=== PATIENT | female | born 1975 | race Caucasian/White ===

== ENCOUNTER 2025-05-21 12:14 | Emergency (ER) | payer BC, SELFPAY ==
--- NOTE | ~2025-05-21 | XR_ITS ---
XR ankle RT min 3V 05/21/2025 12:33 INDICATION: Right ankle pain PROCEDURE: 4 views right ankle COMPARISON: No prior studies for comparison. FINDINGS: Fracture, dislocation or subluxation is not identified. The soft tissues appear within norm al limits. No foreign bodies are identified. IMPRESSION: 1: NO ACUTE BONE OR JOINT ABNORMALITY IDENTIFIED. Reviewed, dictated and finalized at location B.
--- OUTSIDE RECORDS SUMMARY | 2025-05-21 12:20 | XMS_ITS | Encounter Summary ---
Author Organization [facility] Address [address] [place] [address] [place] [address] Care Team Providers Care Button Attaching Machine Operator Name Role Phone Unavailable Primary Care Provider Unavailabl e Encounter Details Date Type Department Care Team (Late st Contact Info) Description 09/27/2021 Lab Requisition [facility] [address] [place] [address] Lauren Mccann MD Social History Tobacco Use Types Packs/Day Years Used Date Smoking Tobacco: Never Assessed Comments Unknown Sex and Gender Information Value Date Recorded Sex Assigned at Not on file Legal Sex Female 1:08 PM CDT Gender Identity Not on file Sexual Orientation Not on file documented as of this encounter Plan of Treatment Not on file documented as of this encounter Procedures Procedure Name Priority Date/Time Associated Diagnosis Comments HCG BETA BLOOD QUANTITATIVE STAT 09/27/2021 12:10 PM TRIPE SCRAPER documented in this encounter Results * HCG BETA BLOOD QUANTITATIVE (09/27/2021 12:10 PM TRIPE SCRAPER) hCG Quantitative <1.20 mIU/mL 09/27/20 4:10 PM TRIPE SCRAPER [facility] Blood BLOOD SPECIMEN / Unknown Venipuncture / Unknown 09/27/2021 12:10 PM TRIPE SCRAPER 09/27/2021 3:14 PM TRIPE SCRAPER Narrative [facility] - 09/27/2021 4:10 PM TRIPE SCRAPER hCG Reference Range, mIU/mL: Males 0-2.0 Non Females 0-6.0 Perimenopausal Females ages 41-55* 0-7.7 Postmenopausal Females age >55* 0-14 Females, Weeks after Last Menstrual Period 0.2-1 week 5-50 1 - 2 weeks 50-500 2 - 3 weeks 100-5000 3 - 4 weeks 500-10,000 4 - 5 weeks 1000-50,000 5 - 6 weeks 10,000-100,000 6 - 8 weeks 15,000-200,000 2 - 3 months 10,000-100,000 Trophoblastic Disease >100,000 *In higher than expected hCG in females > age 40, a serum FSH >20 IU/L makes unlikely. Lauren Mccann MD LAB - CHEMISTRY ORDERABLES Final Result Performing Organization Address City/State/[facility] Co de Phone Number [facility] [address] [place] [address] documented in this encounter Visit Diagnoses Not on filedocumented in this encounter
--- OUTSIDE RECORDS SUMMARY | 2025-05-21 12:20 | XMS_ITS | Encounter Summary ---
Author Organization [facility] Address [facility] [place] [address] Care Team Providers Care Olive Pitter Name Role Phone Ryann Gillis [facility] Primary Care Provider Kalie Castro CARBON GRINDER Unavailable [phone] Donnie Alfaro MD Primary Care Provider [phone] Reason for Referral * Surgical (Routine) - Closed Specialty Diagnoses / Procedures Referred By Floridalma garcia Referred To Contact NEUROLOGICAL SURGERY Diagnoses Congenital fusion of cervical spine Cervical radiculopathy Ryann Gillis [facility] Morgan Hardin MD [address] [place] [phone] Phone: tel: fax: Referral ID Status Reason Start Date Expiration Date V isits Requested Visits Authorized [id number] Closed Specialty Services 11/19/2020 12/20/2021 99 99 Scheduling Instructions Send w referral Findings: There is straightening of the cervical lordosis. There are no vertebral body compression fractures. There is abnormal morphology of the C3 and C4 vertebra with partial ankylosis of the vertebra. This is possibly due to congenital deformity or posttraumatic deformity. The bone marrow signal intensity is grossly normal without infiltrative disorder. The prevertebral soft tissues appear normal. The craniocervical junction is normal without cerebellar tonsillar ectopia. There is no gross syrinx. Partially visualized is a 1.3 cm T2 hyperintense left thyroid nodule. Would consider ultrasound correlation in the near future. C2-3: Mild facet arthropathy. No posterior disc pathology. No central spinal canal stenosis nor right neural foraminal stenosis. Mild to moderate left neural foraminal stenosis due to uncovertebral arthropathy and facet arthropathy. C3-4: Mild facet arthropathy. No posterior disc pathology. No central spinal canal stenosis nor neural foraminal stenosis. C4-5: Moderate facet arthropathy. Posterior disc bulge with left uncovertebral arthropathy. There is moderate central spinal canal stenosis with impingement upon the spinal cord. The right neural foramen is patent. There is moderate left neural foraminal stenosis. C5-6: Moderate facet arthropathy. Broad-based disc bulge with a more left posterior lateral component. There is moderate central spinal canal stenosis. The right neural foramen is patent. There is moderate to severe left neural foraminal stenosis due to facet arthropathy and uncovertebral arthropathy. C6-7: Mild to moderate facet arthropathy. Broad-based posterior disc bulge with impingement upon the ventral cord. There is mild to moderate central spinal canal stenosis. The right neural foramen is patent. There is mild to moderate left neural foraminal stenosis. C7-T1: Mild to moderate facet arthropathy. Mild left posterior lateral bulge. No gross central spinal canal stenosis nor right neural foraminal stenosis. Mild left neural foraminal stenosis. Impression: 1. 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 This may be congenital in nature or posttraumatic in nature. 2. Multilevel facet arthropathy, uncovertebral arthropathy and degenerative disc disease with multilevel stenoses. Please see the body of the report for details. 3. Indeterminate left thyroid nodule only partially visualized. Would consider ultrasound correlation in the near future. GER POKER Encounter Details Date Type Department Care Team (Late st Contact Info) Description 11/18/2020 [email or web address] Message Enc [facility] [address] [address] Ryann Gillis FNP-BC RE: Referral Request Social History Tobacco Use Types Packs/Day Years Used Date Smoking Tobacco: Never Smokeless Tobacco: Never Alcohol Use Standard Drinks/Week Comments Yes 0 (1 standard drink = 0.6 oz pur e alcohol) Rarely AUDIT-C Answer Date Recorded Q1: How often do you have a drink containing alc ohol? Monthly or less 06/15/2020 Average Number of Drinks Not on file 020 Frequency of Binge Drinking Not on file 06/06 PHQ-2 Answer Date Recorded PHQ-2 Score - If the patient scores above 3, please move on to questions 3-9 0 08/28/2020 Comments No Sex and Gender Information Value Date Recorded Sex Assigned at Female 02/10/2025 1:47 PM CDT Legal Sex Female 7:47 PM CDT Gender Identity Not on file Sexual Orientation Not on file COVID-19 Exposure Response Date Recorded In the last month, have you been in contact with someone who was confirmed or suspected to have Coronavirus / COVID-19? No / Unsure 11/17/2020 1:39 PM MANAGER POKER documented as of this encounter Plan of Treatment Upcoming Encounters Date Type Department Care Team (Late st Contact Info) Description 02/10/2026 8:00 AM CDT Appointment [facility] [place] [address] Caden Maldonado MD [address] [place] [address] Scheduled Referrals Name Type Priority Associated Diagnoses Orde r Schedule Ambulatory referral to Neurosurgery (OTHER) Referral Routine Congenital fusion of cervical spine Cervical radiculopathy Ordered: 11/19/2020 documented as of this encounter Visit Diagnoses Diagnosis Congenital fusion of cervical spine- Primary Congenital fusion of spine (vertebra) Cervical radiculopathy Brachial neuritis or radiculitis nos documented in this encounter Additional Health Concerns Infection Onset Date Last Indicated Resolved Time COVID-19 Rule Out 08/25/2021 08/25/2021 08/26/2021 3:20 AM CDT documented as of this encounter Care Teams Olive Pitter Relationship Specialty Start Date End Date Ryann Gillis FNP- PCP - General NURSE PRACTITIONER 08/28/20 07/06/24 Donnie Alfaro MD [address] [place] [address]. [place] [phone] PCP - General FAMILY PRACTICE 07/07/24 Kalie Burt NP [facility] [place] [phone] NURSE PRACTITIONER 08/28/20 documented as of this encounter
--- OUTSIDE RECORDS SUMMARY | 2025-05-21 12:20 | XMS_ITS | Encounter Summary ---
Author Organization [facility] Address [address] [place] [address] Care Team Providers Care Deicer Inspector Pneumatic Name Role Phone Ryann Gillis [facility] Primary Care Provider Kalie Castro HYDRAULIC CONTROLS TECHNICIAN Unavailable Donnie Alfaro MD Primary Care Provider [phone] Encounter Details Date Type Department Care Team (Late st Contact Info) Description 12/01/2023 Invite[employer]t Message Enc [facility] Family Medicine [address] [address] Ryann Gillis FNP- mammogram Social History Tobacco Use Types Packs/Day Years [...] on file 06/06 PHQ-2 Answer Date Recorded Patient Health Questionnaire-2 Score 1 09/01/2023 Comments No Sex and Gender Information Value Date Recorded Sex Assigned at Female 02/10/2025 1:47 PM CDT Legal Sex Female 7:47 PM CDT Gender Identity Not on file Sexual Orientation Not on file documented as of this encounter Plan of Treatment Upcoming Encounters Date Type Department Care Team (Late st Contact Info) Description 02/10/2026 8:[address] [facility] [place] [address] Caden Maldonado MD [address] [address] documented as of this encounter Visit Diagnoses Not on filedocumented in this encounter Additional Health Concerns Assessment Noted Time PHQ-9 Depression Total Score: 1 09/01/20 23 8:09 AM CDT documented as of this encounter Care Teams Deicer Inspector Pneumatic Relationship Specialty Start Date End Date Ryann Gillis [facility] PCP - General NURSE PRACTITIONER 08/28/20 07/06/24 Donnie Alfaro MD [facility] [place] [phone] PCP - General FAMILY PRACTICE 07/07/24 Kalie Burt NP [address] [place] [phone] NURSE PRACTITIONER 08/28/20 documented as of this encounter
--- OUTSIDE RECORDS SUMMARY | 2025-05-21 12:20 | XMS_ITS | Encounter Summary ---
Author Organization [facility] Address [address] [place] [address] Care Team Providers Care Vegetable Worker Name Role Phone Ryann GillisP- Primary Care Provider Kalie Castro 411 DIRECTORY ASSISTANCE OPERATOR Unavailable [phone] Donnie Alfaro MD Primary Care Provider [phone] Encounter Details Date Type Department Care Team (Late st Contact Info) Description 01/07/2021 Jolancert Message Enc [facility] Medical [facility] Family Medicine [address] [address] Ryann Gillis FNP-TYLER Medication Questions Social History Tobacco Use Types Packs/Day Years [...] have Coronavirus / COVID-19? No / Unsure 01/01/2021 12:38 PM SUPERVISOR MENDING documented as of this encounter Plan of Treatment Upcoming Encounters Date Type Department Care Team (Late st Contact Info) Description 02/10/2026 8:00 AM CDT Appointment [facility] [address] Caden Maldonado MD [facility] [address] [address] documented as of this encounter Visit Diagnoses Not on filedocumented in this encounter Additional Health Concerns Infection Onset Date Last Indicated Resolved Time COVID-19 Rule Out 08/25/2021 08/25/2021 08/26/2021 3:20 AM CDT documented as of this encounter Care Teams Vegetable Worker Relationship Specialty Start Date End Date [facility] PCP - General NURSE PRACTITIONER 08/28/20 07/06/24 Donnie Alfaro MD [address] [place] [phone] PCP - General FAMILY PRACTICE 07/07/24 Kalie Burt NP [facility] [place] [address] NURSE PRACTITIONER 08/28/20 documented as of this encounter
--- OUTSIDE RECORDS SUMMARY | 2025-05-21 12:20 | XMS_ITS | Encounter Summary ---
Author Organization [facility] Address [address] [place] [address] Care Team Providers Care Retinal Angiographer Name Role Phone Ryann Gillis [facility] Primary Care Provider Kalie Castro PRESSURE TESTER Unavailable [phone] Donnie Alfaro MD Primary Care Provider [phone] Encounter Details Date Type Department Care Team (Late st Contact Info) Description 12/14/2023 Glofoxt Message Enc [facility] Medical [facility] Family Medicine [address] [address] [facility] Social History Tobacco Use Types Packs/Day [...] Description 02/10/2026 8:[address] [facility] [place] [address] Caden Maldonado MD [address] [address] documented as of this encounter Visit Diagnoses Not on filedocumented in this encounter Additional Health Concerns Assessment Noted Time PHQ-9 Depression Total Score: 1 09/01/20 23 8:09 AM CDT documented as of this encounter Care Teams Retinal Angiographer Relationship Specialty Start Date End Date Ryann Gillis [facility] PCP - General NURSE PRACTITIONER 08/28/20 07/06/24 Donnie Alfaro MD [address] [place] [address]. [place] [address] PCP - General FAMILY PRACTICE 07/07/24 Kalie Burt, PRESSURE TESTER [address] [place] [address] NURSE PRACTITIONER 08/28/20 documented as of this encounter
--- OUTSIDE RECORDS SUMMARY | 2025-05-21 12:20 | XMS_ITS | Clinical Summary ---
Author Organization [facility] Address [address] [place] [address] Care Team Providers Care Sex Crimes Detective Name Role Phone Unavailable Primary Care Provider Unavailabl e Source Comments [facility],non-owned Affiliates and Associated Physician Practices is amultiple site organization consisting of ambulatory clinics and hospital sitesin [place], [place], [place] and [place]. This disclosure is being madepursuant to the Care Everywhere program and may not contain all information available regarding this patient. Last updated 18.[facility] BPT Social History Tobacco Use Types Packs/Day Years Used Date Smoking Tobacco: Never Assessed Comments Unknown Sex and Gender Information Value Date Recorded Sex Assigned at Not on file Legal Sex Female 1:08 PM CDT Gender Identity Not on file Sexual Orientation Not on file Plan of Treatment Health Maintenance Due Date Last Done Comments COLOGUARD (AGES 45-75) - COL ON CA SCREENING 1977 COLON MONITORING 1977 COLONOSCOPY - COLON CA SCREENING 1977 CT COLONOGRAPHY - COLON CA SCREENING 1977 Colorectal Cancer Screening 1977 FIT - COLON CA SCREENING 1977 FLEX SIG - COLON CA SCREENING 1977 LIPID TESTING 1977 MAMMOGRAM 1977 HIV SCREENING 02/09/1992 HEPATITIS C SCREENING 02/04/1995 DTAP/TDAP/TD VACCINES (1 - Tdap) 02/09/1996 HEPATITIS B VACCINE (1 of 3 - 19+ 3-dose series) 02/09/1996 COVID-19 VACCINE (1 - 2023-2 5 season) 2024 DEPRESSION SCREENING 11/06/2024 INFLUENZA VACCINE (#1) 2025 ZOSTER VACCINE (1 of 2) 2027 HIB VACCINE Aged Out No longer eligi ble based on patient's age to complete this topic HPV VACCINE Aged Out No longer eligi ble based on patient's age to complete this topic MENINGOCOCCAL (Group B) VACC INE SHARED DECISION-MAKING Aged Out No longer eligibl e based on patient's age to complete this topic MENINGOCOCCAL GROUPS A/C/Y/W VACCINE Aged Out No longer eligible b ased on patient's age to complete this topic PNEUMOCOCCAL VACCINE Aged Out No long er eligible based on patient's age to complete this topic Insurance
--- OUTSIDE RECORDS SUMMARY | 2025-05-21 12:20 | XMS_ITS | Encounter Summary ---
Author Organization [facility] Address [address] [place] [address] Phone Care Team Providers Care Engine Test Cell Technician Name Role Phone Unknown, Notinfile Primary Care Provider Unavail able Encounter Details Date Type Department Care Team (Latest Contact Info) Description 04/09/2025 [facility] [address] [facility] 7th Floor [address] [place] [address] Latoya Shine MD [address] [facility] [address] [place], [place] [phone] CBC without differential Social History Tobacco Use Types Packs/Day Years Used Date Smoking Tobacco: Never Passive Smoke Exposure: Never Smokeless Tobacco: Never Humiliation, Afraid, Rape, and Kick questionnair e Answer Date Recorded Within the last year, have y ou been afraid of your partner or ex-partner? No 11/20/2024 Within the last year, have y ou been humiliated or emotionally abused in other ways by your partner or ex-partner? No Within the last year, have y ou been kicked, hit, slapped, or otherwise physically hurt by your partner or ex-partner? No 11/20/2024 Within the last year, have y ou been raped or forced to have any kind of sexual activity by your partner or ex-partner? No 11/20/2024 AUDIT-C Answer Date Recorded Q1: How often do you have a drink containing alc ohol? Monthly or less 04/18/2022 Average Number of Drinks Not on file 022 Frequency of Binge Drinking Not on file 04/06 Overall Financial Resource Strain (CARDIA) Answe r Date Recorded How hard is it for you to pa y for the very basics like food, housing, medical care, and heating? Not hard at all 01/01/2025 [facility] - Occupational Stress Questionnaire Answer Date Recorded Do you feel stress - tense, restless, nervous, or anxious, or unable to sleep at night because your mind is troubled all the time - these days? Only a little 01/01/2025 Hunger Vital Sign Answer Date Recorded Within the past 12 months, y ou worried that your food would run out before you got the money to buy more. Never true 01/24/20 25 Within the past 12 months, t he food you bought just didn't last and you didn't have money to get more. Never true 01/23/2025 PRAPARE - Transportation Answer Date Re corded In the past 12 months, has l ack of transportation kept you from medical appointments or from getting medications? No 12/08 In the past 12 months, has l ack of transportation kept you from meetings, work, or from getting things needed for daily living? No 01/01/2025 Housing Stability Vital Sign Answer Jaydon e Recorded In the last 12 months, was t here a time when you were not able to pay the mortgage or rent on time? No 01/01/2025 In the past 12 months, how m any times have you moved where you were living? 1 01/01/2025 At any time in the past 12 m [facility], were you homeless or living in a residential (including now)? No 01/01/2025 Personal Safety Answer Date Recorded Have you ever been in or are you currently in a harmful physical or emotional relationship or is someone making you feel afraid or unsafe? Denies 01/18/2025 Comments No Sex and Gender Information Value Date Recorded Sex Assigned at Not on file Legal Sex Female 8:47 PM ELASTIC ASSEMBLER Gender Identity Not on file Sexual Orientation Not on file Occupation Industry Job Start Date Job End Date [employer] Not on file Not on file Not on file documented as of this encounter Plan of Treatment Upcoming Encounters Date Type Department Care Team (Latest Contact Info) Description 06/06/2025 7:30 AM CDT Hospital Encounter [facility] Operating Room [address] [place] [phone] Latoya Shine MD [address] [facility] [address] [place] [address] 06/06/2025 7:30 AM CDT - 06/06/2025 11:30 AM CDT Surgery [facility] Operating Room [address] [place] [phone] Latoya Shine MD [address] [facility] [address] [place], [place] [id number] LAPAROSCOPIC MYOMECTOMY WITH CONTAINED MORCELLATION Scheduled Procedures Name Priority Associated Diagnoses Date/Ti me LAPAROSCOPIC MYOMECTOMY Fibroids 06/06/2025 7:30 AM CDT HYSTEROGRAM CHROMOTUBATION Fibroids 06/06/2025 7:30 AM CDT documented as of this encounter Goals Goal Patient Goal Type Associated Problems Recent Progress Patient-Stated? Author CCM Chronic Pain Care Plan Chronic Care Management Sofy Lunsford, KATRIN Note: Problem: Chronic Pain Goals: 1. Minimize further functional decline 2. Maximize quality of life 3. Control pain Strategies: - Activity/exercise program recommendation - Conservative stepwise pain medicine strategy with multi-disciplinary approach - Recommend healthy lifestyle strategies and compensatory methods as needed documented as of this encounter Visit Diagnoses Not on filedocumented in this encounter Care Teams Engine Test Cell Technician Relationship Specialty Start Date End Date Unknown, Notinfile PCP - General 01/02/25 documented as of this encounter
--- OUTSIDE RECORDS SUMMARY | 2025-05-21 12:20 | XMS_ITS | Clinical Summary ---
Author Organization [facility] Address [address] [place] [id number] Care Team Providers Care Supervisor [employer] Name Role Phone Kalie Burt NP Unavailable [phone] Donnie Alfaro MD Primary Care Provider [phone] Allergies Active Allergy Reactions Criticality Noted Date Comments Formaldehyde Hives,Unknown High 04/15/2015 IN [place] Sulfa Antibiotics Nausea Only,Other (s ee comment) Low 05/01/2015 metallic taste in mouth Medications ESTARYLLA 0.25-35 MG-MCG tablet TAKE 1 TABLET BY MOUTH EVERY DAY DIRECTED. TAKE ACTIVE PILLS ONLY 3 Active phentermine (ADIPEX-P) 37.5 MG capsuleIndicatio ns:Morbid obesity due to excess calories ([facility]),BMI 32.0-32.9,adult TAKE 1 CAPSULE(37.5 MG) BY MOUTH BEFORE BREAKFAST 30 capsule 3 Active topiramate (TOPAMAX) 25 MG tabletIndication s:Morbid obesity due to excess calories ([facility]),BMI 32.0-32.9,adult TAKE 1 TABLET(25 MG) BY MOUTH DAILY 90 tablet 4 Active levothyroxine (SYNTHROID) 75 MCG tabletIndication s:Hypothyroidism , unspecified type Take 1 tablet (75 mcg total) by mouth every morning. 30 tablet 4 Active Active Problems Patient Care Coordination No te Formatting of this note migh t be different from the original. 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 Intramural leiomyoma of uterus 06/04/2020 Overview (09/01/2023): Intramural leiomyoma of uterus; Progress: Stable Added By: Kalie Burt Add to Current Problems: YES ProblemStatus: Current Family history of malignant neoplasm of ovary Overview (09/01/2023): Family history of malignant neoplasm of ovary; Progress: Stable Added By: Vianney Villarreal Add to Current Problems: YES ProblemStatus: Current Alopecia 12/24/2017 Overview (09/01/2023): Loss of hair; Location: None Progress: Stable Added By: Kalie Burt Add to Current Problems: YES ProblemStatus: Current Nonscarring hair loss, unspecified; Progress: Stable Added By: Kalie Burt Add to Current Problems: YES ProblemStatus: Current Breast lump 12/19/2016 Overview (09/01/2023): Breast mass; Location: None Progress: Stable Added By: Pennie Rousseau Add to Current Problems: YES ProblemStatus: Current Unspecified lump in breast; Progress: Stable Added By: Kalie Burt Add to Current Problems: YES ProblemStatus: Current Uses contraception 12/07/2016 Overview (09/01/2023): Follow-up visit for other contraception method; Location: None Severity: Moderate Progress: Stable Added By: Perla Campbell Add to Current Problems: YES ProblemStatus: Resolve Status post anterior cruciate ligament surgery 0 05/29/2015 ACL tear 05/19/2015 Allergic rhinitis 04/15/2015 Resolved Problems Problem Noted Date Diagnosed Date Resolved Date Need for tuberculosis vaccination 08/07/2018 07/17/2020 Acute sinusitis 11/18/2015 08/28/2020 Dysmenorrhea 11/18/2015 09/01/2023 Pap smear for cervical cancer screening 11/18/2015 07/17/2020 Inflamed skin tag 11/18/2015 08/28/2020 Rupture of anterior cruciate ligament 08/19/2015 08/28/2020 ACL tear 05/19/2015 08/28/2020 Family History Medical History Relation Comments Hypertension Father Diabetes Maternal Grandmother Only [employer] [place] w/ pills Alcohol Abuse Paternal Aunt Hypertension Paternal Grandfather Stroke Paternal Grandfather Cancer Paternal Grandmother Throat Relation Status Comments Father Maternal Grandmother Paternal Aunt Paternal Grandfather Paternal Grandmother Social History Tobacco Use Types Packs/Day Years Used Date Smoking Tobacco: Never Smokeless Tobacco: Never Tobacco Cessation:Counseling Given: No Alcohol Use Standard Drinks/Week Comments Yes 0 [...] on file Sexual Orientation Not on file Last Filed Vital Signs Vital Sign Reading Time Taken Comments Blood Pressure 109/67 09/01/2023 8:03 AM CDT Pulse 70 09/01/2023 8:03 AM CDT Temperature 36.6 C (97.9 F) 09/01/2023 8:03 AM CDT Respiratory Rate 12 09/01/2023 8:03 AM CDT Oxygen Saturation 97% 09/01/2023 8:03 AM CDT Inhaled Oxygen Concentration - - Weight 84.1 kg (185 lb 6.4 oz) 09/01/2023 8:03 A M CDT Height 161.3 cm (5' 3.5) 09/01/2023 8:03 AM CDT Body Mass Index 32.33 09/01/2023 8:03 AM CDT Plan of Treatment Upcoming Encounters Date Type Department Care Team (Carl st Contact Info) Description 02/10/2026 8:00 AM CDT Appointment [facility] [place] [address] Caden Maldonado MD [address] [place] [phone] Health Maintenance Due Date Last Done Comments Colorectal Cancer Screening Colonoscopy (10 Years) 1977 DTaP, Tdap and Td Vaccines ( 1 - Tdap) 02/09/1996 Hepatitis B Vaccines (1 of 3 - 19+ 3-dose series) 02/09/1996 Cervical Cancer Screening Pa p with HPV Testing (Age 30 to 64) Every 5 Years 2007 Cervical Cancer Screening Pa p Smear (Age 30 to 64) Every 3 Years 11/18/2018 11/18/2015 Cervical Cancer Screening wi th HPV 11/18/2018 COVID-19 Vaccine ( - 2023-2 5 season) 2024 Annual Physical 09/01/2024 09/01/2023, 07/30/2021, 06/15/2020 PHQ-2 ([facility] [place]) 11/06/2024 09/01/2023 Mammogram Screening 12/13/2025 12/13/2023, 12/13/2023, 12/01/2023 Hepatitis C Completed 09/01/2023 Meningococcal B Vaccine Aged Out No l onger eligible based on patient's age to complete this topic Meningococcal Vaccine Aged Out No bonifacio vidya eligible based on patient's age to complete this topic Pneumococcal Vaccine: Pediatrics (0 to 5 Years) and At-Risk Patients (6 to 49 Years) Aged Out No longer eligible b ased on patient's age to complete this topic RSV Immunizations Under 20 Months Aged Out No longer eligible b ased on patient's age to complete this topic Procedures Procedure Name Priority Date/Time Associated Diagnosis Comments MAMMOGRAM GENERIC (SCAN ORDER) 12/13/2023 HEPATITIS C ANTIBODY W/RFX TO HCV RNA Routine 09/01/2023 9:31 AM CDT Morbid obesity due to excess calories Need for hepatitis C screening test SUREPATH PAP WI REFLEX TO HPV Routine 11/18/2015 12:00 AM PRODUCTION LINE WORKER from Last 3 Months or Most Recently Relevant to Health Maintenance Results * MAMMOGRAM GENERIC (SCAN ORDER) (12/13/2023) Anatomical Region Laterality Modality Other 12/13/2023 [facility] Scanned SCANNING Final Resu lt * HEPATITIS C ANTIBODY W/RFX TO HCV RNA ([facility] ONLY) (09/01/2023 9:31 AM CDT) HEPATITIS C AB NON-REACT MIA NON-REACT MIA [place] [facility] Comment: HCV antibody was non-reactive. There is no laboratory evidence of HCV infection. In most cases, no further action is required. However, if recent HCV exposure is suspected, a test for HCV RNA (test code 33348) is suggested. For additional information please refer to http://education.[employer]/faq/RYJ57t0 (This link is being provided for informational/ educational purposes only.) 09/01/2023 9:31 AM CDT 09/02/2023 6:38 AM CDT Narrative Resulting Agency Comment Performing Organization Information: Site ID: [id number] Name: [email or web address] Address: [address] [place] [id number] Director: Placido Ramirez MD Ryann Gillis [facility] [place] Final Resul t JASMINE CRENSHAW [facility] [id number] [place] [id number], * SUREPATH PAP WI REFLEX TO HPV (11/18/2015 12:00 AM PRODUCTION LINE WORKER) COMMENT [facility] T O EPIC CONVERSION Comment: Result Comment: NEGATIVE FOR INTRAEPITHELIAL LESION AND MALIGNANCY. CELLULAR CHANGES ASSOCIATED WITH INFLAMMATION ARE PRESENT. THIS SPECIMEN WAS RESCREENED PART OF OUR ACCOUNT EXECUTIVE PROGRAM. STATEMENT OF ADEQUACY: [facility] TO EPIC CONVERSION Comment: Result Comment: Satisfactory for evaluation. Endocervical and/or squamous metaplastic cells (endocervical component) are present. PRIMARY DIAGNOSIS: M [facility] TO EPIC CONVERSION Comment:Result Comment: Z12. 4 COMMENT [facility] T O EPIC CONVERSION Comment:Result Comment: Omari Arellano, Curing Bin Operator (ASCP) REVIEWED BY [facility] TO EPIC CONVERSION Comment:Result Comment: Tam Sanchez, Supervisory Curing Bin Operator (ASCP) COMMENT . [facility] T O EPIC CONVERSION NOTE [facility] T O EPIC CONVERSION Comment: Result Comment: The Pap smear is a screening test designed to aid in the detection of premalignant and malignant conditions of the uterine cervix. It is not a diagnostic procedure and should not be used as the sole means of detecting cervical cancer. Both false-positive and false-negative reports do occur. . HPV INTERMEDIATE/HIGH RISK Negative Negative [facility] TO EPIC CONVERSION Comment: Result Comment: This high-risk HPV test detects thirteen high-risk types (16/18/31/33/35/39/45/51/52/56/58/59/68) without differentiation. . 11/18/2015 11/18/2015 Narrative [facility] TO EPIC CONVERSION - 11/27/2015 6:42 AM PRODUCTION LINE WORKER Result Communication: No patient communication needed at this time Homar Rivero MD PATHOLOGY/CYTOLOGY ORDERA BLES Final Result [facility] TO EPIC CONVERSION from Last 3 Months or Most Recently Relevant to Health Maintenance Insurance Care Teams Supervisor [employer] Relationship Specialty Start Date End Date Donnie Alfaro MD [address] [facility] [place] [phone] PCP - General FAMILY PRACTICE 07/07/24 Kalie Burt NP [address] [facility] [place] [phone] NURSE PRACTITIONER 08/28/20
--- OUTSIDE RECORDS SUMMARY | 2025-05-21 12:20 | XMS_ITS | Referral Summary ---
Author Organization [facility] Address [address] [place] [id number] Care Team Providers Care Marketing Development Representative Name Role Phone Unknown, Notinfile Primary Care Provider Unavail able Encounters Date Type Department Care Team Description 04/09/2025 Results Follow-Up [facility] Minimally Invasive Surgery [address] [place] [address] Outpatient Health 7th Floor [address] [place] [phone] Latoya Shine MD CBC without differential 04/08/2025 9:00 AM CDT Lab [facility] [address] [place] [id number] Fibroid 04/08/2025 8:15 AM CDT Office Visit [facility] Minimally Invasive Surgery [address] [place] [address] 7th Floor [address] [place] [phone] Latoya Shine MD Abnormal uterine bleeding (AUB) (Primary Dx); Fibroid 03/04/2025 6:36 PM CDT - 03/04/2025 11:59 PM CDT Hospital Encounter [facility] - Imaging [address] [place] [address] Uterine leiomyoma, unspecified location Discharge Disposition: Discharge to home or self care from Last 3 Months Allergies Active Allergy Reactions Criticality Noted Date Comments Formaldehyde Hives Medium 02/02/2021 Childhood bubble bath caused hives- suspect formaldehyde as ingredient Sulfa (Sulfonamide Antibiotics) Nausea only,Other (See comments),Nausea & Vomiting Low 02/02/2021 metallic taste in mouth Medications ascorbic acid (VITAMIN C ORAL) Take 1 tablet by mouth every morning Active cholecalciferol, vitamin D3, (VITAMIN D3 ORAL) Take 1 tablet by mouth every morning Active ZINC ORAL Take 1 tablet by mouth every morning Active calcium polycarbophil (FIBER-TABS ORAL) Take 1 tablet by mouth every morning Active diphenhydrAMINE (BENADRYL) 25 mg capsule Take 25 mg by mouth every 6 (six) hours as needed for allergies Active loratadine (CLARITIN) 10 mg tablet Take 1 tablet (10 mg total) by mouth every morning Active PNV no.95/ferrous fum/folic ac ( ORAL) Take 1 tablet by mouth every morning Active calcium carbonate (CALCIUM 600 ORAL) Take by mouth Active vitamin B complex capsule Take 1 capsule by mouth daily Active UNABLE TO FIND Take 1 each by mouth daily Med Name: Fertilla LQ Active MAGNESIUM GLYCINATE ORAL Take by mouth A ctive levothyroxine (SYNTHROID) 88 mcg tablet Take 1 tablet (88 mcg total) by mouth aerial sprayer before breakfast 90 tablet 3 5 Active acetaminophen (TYLENOL) 500 mg tablet Take 1 tablet (500 mg total) by mouth every 6 (six) hours as needed for pain 30 tablet 5 Active ibuprofen (ADVIL,MOTRIN) 600 mg tablet Take 1 tablet (600 mg total) by mouth every 6 (six) hours as needed for pain 30 tablet 5 Active norgestimate-ethin yl estradioL (Estarylla) 0.25-0.035 mg per tablet TAKE 1 TABLET BY MOUTH EVERY DAY DIRECTED. TAKE ACTIVE PILLS ONLY Active [id number] CORBIC ACID ORAL 4 Active ascorbic acid (Vitamin C) 500 mg tablet,chewable 0 Active Active Problems Problem Noted Date Diagnosed Date Fibroids 04/08/2025 with 15 completed weeks gestation 12/08 Threatened miscarriage 01/02/2025 Vaginal bleeding in , second trimester 01/02/2025 IUFD at less than 20 weeks of gestation 01/02/20 25 Resolved Problems Problem Noted Date Diagnosed Date Resolved Date Supervision of normal first , antepartum 11/20/2024 01/15/2025 Overview (01/02/2025): PROBLEM LIST 49 y.o. Estimated Date of Delivery: 06/20/25 S/p IVF with Dr. Mccann Letter done echo ordered 22-24 wk== AMA/50 yr Advised bASA throughout to reduce HTN and stillbirth risks Increase surveillance in 3rd trimester 8cm posterior myoma 10 wk: discussed risks of pain or organ compression Hypothyroid 10 wk: Levothyroxine 88mcg. 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 [x]Y []N Tdap []Y []declined Baby Gender [x] girl [] boy [] declined echo [x]Y []N RSV []Y []declined Blood Type Lab Results Component Value Date [id number] O 11/25/2024 [id number] Negative 11/25/2024 ABORH O Negative 03/26/2021 1h GCT [] done No results found for: [id number] Flu vaccine [] DONE [] Plans @ work [] Off season [x] declined GBS No results found for: STREPBDNA [] Discussed Peds [] Discussed classes Induction: [] C/S Plans [] 39w [] 40w [] 41w Lab Results Component Value Date RUBELIGGNX 1.67 11/25/2024 [id number] Non Reactive 11/25/2024 HEPBSAG Negative 11/25/2024 HEPCAB Non Reactive 11/25/2024 LABRPR Non Reactive 11/25/2024 URINECULTURE Final report (A) 11/25/2024 MISCRESULT Comment (A) 11/25/2024 MISCRESULT Comment 11/25/2024 [id number] O 11/25/2024 [id number] Negative 11/25/2024 Lab Results Component Value Date [id number] Negative 11/25/2024 [id number] Negative 11/25/2024 [id number] Negative 11/25/2024 FETALSEX Comment 11/25/2024 Cervical myelopathy 03/04/2021 11/20/19 Overview (03/04/2021): Added automatically from request for surgery [id number] 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 Not hard at all 01/01/2025 [facility] [place] [facility] Occupat ional [facility] - Occupational Stress Questionnaire Answer Date Recorded [...] any time in the past [facility], were you homeless or living in a skilled nursing (including now)? No 01/01/2025 Personal Safety Answer Date Recorded Have you ever been in or are you currently in a harmful physical or emotional relationship or is someone making you feel afraid or unsafe? 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 Not on file Not on file Not on file Last Filed Vital Signs Vital Sign Reading Time Taken Comments Blood Pressure 108/73 04/08/2025 8:00 AM CDT Pulse 71 01/23/2025 8:56 AM CDT Temperature 36.7 C (98.1 F) 01/18/2025 5:57 PM CDT Respiratory Rate 18 01/18/2025 5:57 PM CDT Oxygen Saturation 98% 01/23/2025 8:56 AM CDT Inhaled Oxygen Concentration - - Weight 87.7 kg (193 lb 6.4 oz) 04/08/2025 8:00 A M CDT Height 162.6 cm (5' 4) 04/08/2025 8:00 AM CDT Body Mass Index 33.2 04/08/2025 8:00 AM CDT Plan of Treatment Upcoming Encounters Date Type Department Care Team (Latest Contact Info) Description 06/06/2025 7:30 AM CDT Hospital Encounter [facility] Operating Room [address] [place] [phone] Latoya Shine MD [address] [place] [id number] 06/06/2025 7:30 AM CDT - 06/06/2025 11:30 AM CDT Surgery [facility] Operating Room [address] [place] [phone] Latoya Shine MD [address] [place] [phone] LAPAROSCOPIC MYOMECTOMY WITH CONTAINED MORCELLATION Scheduled Procedures Name Priority Associated Diagnoses Date/Ti me LAPAROSCOPIC MYOMECTOMY Fibroids 06/06/2025 7:30 AM CDT HYSTEROGRAM CHROMOTUBATION Fibroids 06/06/2025 7:30 AM CDT Goals Goal Patient Goal Type Associated Problems Recent Progress Patient-Stated? Author CCM Chronic Pain Care Plan Chronic Care Management Sofy Lunsford RN Note: Problem: Chronic Pain Goals: 1. Minimize further functional decline 2. Maximize quality of life 3. Control pain Strategies: - Activity/exercise program recommendation - Conservative stepwise pain medicine strategy with multi-disciplinary approach - Recommend healthy lifestyle strategies and compensatory methods as needed Medical Devices Implanted Type Area Brain Wave Technician Device Identifier Shelf Expiration Date Model / Serial / Lot [employer] 700-025 I Factor Allograft Putty Syringe Graft 2.5cc Bone - [id number] Implanted:Qty: 1 on 03/26/2021 by Morgan Hardin MD at [facility] Spine Cervical [employer] [id number] 12/06/2023-025 / / [id number] [employer] [id number] Cage Spinal Cervical 14d X 16w X 7h 6 Degree - [id number] Implanted:Qty: 1 on 03/26/2021 by Morgan Hardin MD at [facility] Spine Cervical [employer] [id number] 03/27/2025 [id number] / / [id number] [employer] [id number] Cage Spinal Cervical 14d X 16w X 7h 6 Degree - [id number] Implanted:Qty: 1 on 03/26/2021 by Morgan Hardin MD at [facility] Spine Cervical [employer] [id number] 05/25/2025 [id number] / / [id number] [employer] [id number] Cage Spinal Cervical 14d X 16w X 7h 6 Degree - [id number] Implanted:Qty: 1 on 03/26/2021 by Morgan Hardin MD at [facility] Spine Cervical [employer] [id number] 05/25/2025 [id number] / / [id number] [employer] [id number] Maxan 48mm Level 3 Spine Cervical Anterior Plate Bone Titanium - [id number] Implanted:Qty: 1 on 03/26/2021 by Morgan Hardin MD at [facility] Spine Cervical [employer] [id number] / / [employer] [id number] Maxan 4mm 14mm Variable Angle Self Drill Spine Screw Bone - [id number] Implanted:Qty: 8 on 03/26/2021 by Morgan Hardin MD at [facility] Spine Cervical [employer] [id number] / / Procedures Procedure Name Priority Date/Time Associated Diagnosis Comments CBC WITHOUT DIFFERENTIAL Routine 04/08/2025 9:08 AM CDT Fibroid MRI PELVIS W WO CONTRAST Schedule Routine, Read Routine (OP Routine) 03/04/2025 7:55 PM CDT Uterine leiomyoma, unspecified location SCREENING MAMMOGRAM BILATERAL W PETE Schedule Routine, Read Routine (OP Routine) 01/21/2025 12:42 PM CDT Screening mammogram, encounter for HEPATITIS C AB W/REFL TO HCV RNA, QN, PCR (REFL) Routine 11/25/2024 12:28 PM OPTICIAN Encounter for supervision of normal first in first trimester from Last 3 Months or Most Recently Relevant to Health Maintenance Results * (ABNORMAL) CBC without differential (04/08/2025 9:08 AM CDT) WBC 6.79 3.80 - 9.90 K/cumm Hgb 11.2(L) 11.9 - 15.5 g/dL [facility] Hct 33.8(L) 35.6 - 45.5 % [facility] Plt 214 150 - 400 K/cumm [facility] MPV 11.4 9.1 - 12.3 fL [facility] RBC 4.20 3.90 - 5.20 M/cumm [facility] MCV 80.5(L) 81.3 - 96.4 fL [facility] MCH 26.7(L) 27.1 - 33.3 pg [facility] MCHC 33.1 32.3 - 35.7 g/dL [facility] RDW CV 15.3(H) 11.1 - 14.9 % [facility] RDW SD 44.3 35.7 - 48.1 fL [facility] NRBC abs 0.00 0.00 - 0.01 K/cumm [facility] Blood 04/08/2025 9:08 AM CDT 04/08/2025 10:19 AM CDT us Latoya Shine MD LAB BLOOD ORDERABLES F inal Result [facility] [place] [address] * MRI Pelvis W WO Contrast (03/04/2025 7:55 PM CDT) Anatomical Region Laterality Modality Pelvis N/A Magnetic Resonan ce 03/05/2025 9:22 AM CDT Impressions 03/05/2025 2:21 PM CDT Multiple nonviable uterine fibroids, the majority of which are intramural, including a 8.6 cm degenerating fibroid in the uterine fundus. Dictated by: Aristeo Melchor MD The radiology attending physician has personally reviewed this study, and had reviewed and/or edited this written report and agrees with it. Electronically signed by: Brianna Jung M.D. Narrative 03/05/2025 2:21 PM CDT EXAMINATION: MAGNETIC RESONANCE IMAGING OF THE PELVIS WITHOUT AND WITH CONTRAST HISTORY: Uterine fibroids. TECHNIQUE: MR imaging of the pelvis was performed prior to and following administration of intravenous gadolinium. Protocol: Uterine Fibroid Contrast: MultiHance 17 mL COMPARISON: None FINDINGS: Uterus: Enlarged anteverted uterus secondary to multiple fibroids as described below. Nabothian cyst. Endometrium and myometrium: Distorted endometrial canal and myometrium secondary to the below described fibroids. No abnormal endometrial thickening. Fibroids: There are multiple fibroids (approximately 6), and the majority of which are intramural, which do not demonstrate significant enhancement. This includes a large degenerating fibroid with increased central T2 signal at the uterine fundus which measures up to 6.1 x 8.6 x 7.7 cm. There is a small 0.8 x 2.9 cm subserosal fibroid along the left lateral uterine body (series 8 image 20). No associated diffusion restriction with any of the fibroids. Ovaries: Normal right ovarian follicles. No suspicious adnexal lesion. Angiographic Findings: No enlarged ovarian arteries are visualized. Other findings: Trace pelvic free fluid. No abdominal lymphadenopathy. No suspicious osseous lesion. Urinary bladder is normal. Procedure Note Brianna Jung MD - 03/05/2025 EXAMINATION: MAGNETIC RESONANCE IMAGING OF THE PELVIS WITHOUT AND WITH CONTRAST HISTORY: Uterine fibroids. TECHNIQUE: MR imaging of the pelvis was performed prior to and following administration of intravenous gadolinium. Protocol: Uterine Fibroid Contrast: MultiHance 17 mL COMPARISON: None FINDINGS: Uterus: Enlarged anteverted uterus secondary to multiple fibroids as described below. Nabothian cyst. Endometrium and myometrium: Distorted endometrial canal and myometrium secondary to the below described fibroids. No abnormal endometrial thickening. Fibroids: There are multiple fibroids (approximately 6), and the majority of which are intramural, which do not demonstrate significant enhancement. This includes a large degenerating fibroid with increased central T2 signal at the uterine fundus which measures up to 6.1 x 8.6 x 7.7 cm. There is a small 0.8 x 2.9 cm subserosal fibroid along the left lateral uterine body (series 8 image 20). No associated diffusion restriction with any of the fibroids. Ovaries: Normal right ovarian follicles. No suspicious adnexal lesion. Angiographic Findings: No enlarged ovarian arteries are visualized. Other findings: Trace pelvic free fluid. No abdominal lymphadenopathy. No suspicious osseous lesion. Urinary bladder is normal. IMPRESSION: Multiple nonviable uterine fibroids, the majority of which are intramural, including a 8.6 cm degenerating fibroid in the uterine fundus. Dictated by: Aristeo Melchor MD The radiology attending physician has personally reviewed this study, and had reviewed and/or edited this written report and agrees with it. Electronically signed by: Brianna Jung M.D. Douglas Ho MD [facility] MRI PROCEDURES Final Result * Screening Mammogram Bilateral W Pete (01/21/2025 12:42 PM CDT) Anatomical Region Laterality Modality Breast Bilateral Mammography Narrative 01/22/2025 6:49 AM CDT Examination: Screening Mammogram Bilateral W Pete: 01/21/25 Prior Study Comparisons: Relevant prior studies available at the time of interpretation were reviewed. Findings: Bilateral There is no suspicious mass, calcification, or architectural distortion in either breast. The breasts are heterogeneously dense, which may obscure small masses. The patient will be notified of results by letter. Impression: BI-RADS ATLAS category (overall): 2 - Benign Routine Screening Mammogram in 1 Yr is recommended for bilateral Overall Assessment: 2 - Benign Douglas Ho MD [facility] MAMMO PROCEDURES Tequila l Result * HEPATITIS C AB W/REFL TO HCV RNA, QN, PCR (REFL) (11/25/2024 12:28 PM OPTICIAN) Hep C Ab Non Reactive Non Reactive [facility] - 01 Blood 11/25/2024 12:2 8 PM OPTICIAN 11/25/2024 Narrative [facility] - 11/26/2024 5:35 AM OPTICIAN Performed at: [facility] [address] [id number] Traffic Control Technician: Karlo Chavarria PhD, Phone: [phone] us Douglas Ho MD LAB BLOOD ORDERABLES Tequila gill Result [facility] - 01 from Last 3 Months or Most Recently Relevant to Health Maintenance Insurance iSECUREtrac PA iSECUREtrac PA Quettra ACCESS PA iSECUREtrac PA Advance Directives For more information, please contact: [phone] Documents on File Type Date Recorded Patient Transcription Specialist Expl anation ADVANCE DIRECTIVE 03/26/2021 5:46 AM * Full Code (Latest Code Status on File) Date Activated Date Inactivated Comments 01/02/2025 12:37 AM 01/02/2025 6:43 PM * Full Code Date Activated Date Inactivated Comments 03/26/2021 4:25 PM 03/27/2021 4:37 PM Care Teams Marketing Development Representative Relationship Specialty Start Date End Date Unknown, Notinfile PCP - General 01/02/25
--- OUTSIDE RECORDS SUMMARY | 2025-05-21 12:20 | XMS_ITS | Encounter Summary ---
Author Organization [facility] Address [address] [place] [address] Care Team Providers Care Wallpaper Embosser Helper Name Role Phone NathaliaRyann rizo [facility] Primary Care Provider Kalie Castro ROOM CLEANER Unavailable [phone] Donnie Alfaro MD Primary Care Provider Encounter Details Date Type Department Care Team (Late st Contact Info) Description 10/05/2023 Opzi Message [address] [phone] [place], [facility] Provider Screening Social History Tobacco Use Types Packs/Day Years [...] Description 02/10/2026 8:[address] [facility] [place] [address] Caden Maldonado MD [address] [address] documented as of this encounter Visit Diagnoses Not on filedocumented in this encounter Additional Health Concerns Assessment Noted Time PHQ-9 Depression Total Score: 1 09/01/20 23 8:09 AM CDT documented as of this encounter Care Teams Wallpaper Embosser Helper Relationship Specialty Start Date End Date [facility]is [facility] PCP - General NURSE PRACTITIONER 08/28/20 07/06/24 Donnie Alfaro MD [facility] [place] [address] PCP - General FAMILY PRACTICE 07/07/24 Kalie Burt NP [facility] [place] [phone] NURSE PRACTITIONER 08/28/20 documented as of this encounter
--- OUTSIDE RECORDS SUMMARY | 2025-05-21 12:20 | XMS_ITS | Clinical Summary ---
Author Organization 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 TAKE ACTIVE PILLS ONLY Active [id number] CORBIC ACID ORAL 4 Active ascorbic acid (Vitamin C) 500 mg tablet,chewable 0 Active Active Problems Problem Noted Date Diagnosed Date Fibroids 04/08/2025 with 15 completed weeks gestation 12/08 Threatened miscarriage 01/02/2025 Vaginal bleeding in , second trimester 01/02/2025 IUFD at less than 20 weeks of gestation 01/02/20 Resolved Problems Problem Noted Date Diagnosed Date [...] Rhogam Plan 28 wk Rhogam Referred by: Cousin works on pp at [employer], Dr. 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 [x]Y []N Tdap []Y []declined Baby Gender [x] girl [] boy [] declined echo [x]Y []N RSV []Y []declined Blood Type Lab Results Component Value Date [id number] O 11/25/2024 [id number] Negative 11/25/2024 ABORH O Negative 03/26/2021 1h GCT [] done No results found for: [id number] Flu vaccine [] DONE [] Plans @ work [] Off season [x] declined GBS No results found for: STREPBDNA [] Discussed Peds [] Discussed classes Induction: [] C/S Plans [] 39w [] 40w [] 41w Lab Results Component Value Date RUBELIGGNX 1.67 11/25/2024 [id number] Non Reactive 11/25/2024 HEPBSAG Negative 11/25/2024 HEPCAB Non Reactive 11/25/2024 LABRPR Non Reactive 11/25/2024 URINECULTURE Final report (A) 11/25/2024 MISCRESULT Comment (A) 11/25/2024 MISCRESULT Comment 11/25/2024 [id number] O 11/25/2024 [id number] Negative 11/25/2024 Lab Results Component Value Date [id number] Negative 11/25/2024 [id number] Negative 11/25/2024 [id number] Negative 11/25/2024 FETALSEX Comment 11/25/2024 Cervical myelopathy 03/04/2021 11/20/19 Overview (03/04/2021): Added automatically from request for surgery [id number] 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 11/20/2024 Intramural leiomyoma of uterus 06/04/2020 11/20/2024 Alopecia 12/25/2017 11/20/2024 Breast lump 12/20/2016 11/20/2024 Dysmenorrhea 11/18/2015 11/20/2024 Status post anterior cruciat e ligament surgery 05/29/2015 11/20/2024 ACL tear 05/19/2015 11/20/2024 Allergic rhinitis 04/15/2015 11/20/2024 Encounters Date Type Department Care Team Description 04/09/2025 Results Follow-Up [facility] [address] [facility] 7[address] [place] [address] Latoya Shine MD CBC without differential 04/08/2025 9:00 AM CDT Lab [facility] [address] [facility] [place] [address] Fibroid 04/08/2025 8:15 AM CDT Office Visit [facility] [address] [facility] 7th [address] [place] [address] Latoya Shine MD Abnormal uterine bleeding (AUB) (Primary Dx); Fibroid 03/04/2025 6:36 PM CDT - 03/04/2025 11:59 PM CDT Hospital Encounter [facility] [address] [place] [address] Uterine leiomyoma, unspecified location Discharge Disposition: Discharge to home or self care from Last 3 Months Surgical History Surgery Date Site/Laterality Comments TONSILLECTOMY 11/06/1986 - 11/05/1987 ARTHROSCOPIC REPAIR ACL 11/06/2014 - 11/05/2015 Left WISDOM TOOTH EXTRACTION SPINAL FUSION Medical History Medical History Date Comments PONV (postoperative nausea a nd vomiting) antiemetics have not helped entirely Allergic rhinitis 04/15/2015 Intramural leiomyoma of uterus 06/04/2020 Breast lump 12/20/2016 Cervical myelopathy (HCC) 03/04/2021 Added automatically from request for surgery [id number] 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 Hypothyroidism (acquired) Family History Medical History Relation Name Comments Heart disease Father h/o bypass Hypertension Father Parkinsonism Father Seizures Father Usual Breast Hyperplasia Father's Brother No Known Problems Half-Brother 1 No Known Problems Half-Brother 2 No Known Problems Half-Brother 3 Polycystic ovary syndrome Half-Sister Diabetes Maternal Grandmother Early Maternal Grandmother Heart attack Maternal Grandmother Heart disease Maternal Grandmother Hypertension Maternal Grandmother Hypothyroidism Mother Hypertension Paternal Grandfather Stroke Paternal Grandfather Cancer Paternal Grandmother Anesthesia problems Neg Hx Breast cancer Neg Hx Relation Name Status Comments Father Alive Father's Brother Half-Brother 1 Alive Half-Brother 2 Alive Half-Brother 3 Alive Half-Sister Alive Maternal Grandmother Mother Alive Paternal Grandfather Paternal Grandmother Social History Tobacco [...] and heating? Not hard at all 01/01/2025 [facility] - Occupational Stress [...] any time in the past 12 m [facility], were you homeless or living in a penitentiary (including now)? No 01/01/2025 Personal Safety Answer Date Recorded Have you ever been in or are you currently in a harmful physical or emotional relationship or is someone making you feel afraid or unsafe? 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 Not on file Not on file Not on file Obstetrics History Para Term AB IAB SAB Ectopic Multiple Livin g Live Births 1 0 0 0 1 0 0 0 0 0 0 Date Outcome GA Total Labor Labor/2nd/3rd Weight Sex Type Anes PTL Savi A1 A5 Name Clin AB 15w6 d D&E Demise Summary Episode Dates Number of Fetuses Estimated Date of Delivery 11/19/2024 - Present (05/21/2025) 1 06/20/2025 (set by Lakisha Jovel, RN on 11/20/2024 based on Day 5 Embryo Transfer on 10/02/2024) Dating Summary Based On BERNADINE GA Diff Ultrasound on 11/19/2024 06/21/2025 -1d GA:9w3d Day 5 Embryo Transfer on 10/02/2024 06/20/2025 Working Overview and Plan :Ferro sex:Female Vitals Pregravid Weight Height TWG (As of 05/21/2025) Pregrav id BMI 81.6 kg (180 lb) 160 cm (5' 3) 0.045 kg (1.6 oz) 31.8 9 Date GA Fund Present FHR Mvmt BP Weight Edema Alb Glu Ket Dil/ Eff/Sta 5 15w6d Inpatient data not displayed here. See encounter summary. 5 16w0d Inpatient data not displayed here. See encounter summary. 5 18w1d Inpatient data not displayed here. See encounter summary. Notes Progress Notes - Orders Only - 02/13/2025 - GA:21w6d 02/13/2025 - w6d - Douglas Thomas MD Pelvic MRI with/without contrast ordered per Dr. Latoya Shine's request. I messaged the patient through [employer] with the plan as well. Douglas Ho MD Progress Notes - Office Steviei t - 01/23/2025 - GA:18w6d 01/23/2025 - wd - Cassi Jane MD INSIDE CONTRACTOR SALES POST-OP PROGRESS NOTE Patient ID: Maria Ines Wall is a 49 y.o. female Subjective Chief Complaint: Post-op visit HPI: Maria Ines Wall is a 49 y.o. now 3 weeks s/p uncomplicated D&E for IUFD at 15w6d iso previable PPROM. Presented to [facility] on 01/18 after passing tissue at home. Tissue examined with low concern for POCs. TVUS reassuring. Discharged with return precautions. Bleeding waxing and waning over the last three weeks, seems to have stopped as of last night. Has been passing large clots. Saw Dr. Ho 01/15, had additional TVUS without signs of POCs. Was started on PO iron every other day. Endorses mild cramping. Feeling sad but doing okay, has good support at home. Desires , appointment with AZEB scheduled 02/05. Histories I personally reviewed PMH, PSH, Past Family Preservation Caseworker hx, Social history, medications and allergies. All necessary changes were made in chart to reflect updates. Objective BP 107/63 Pulse 71 Ht 160 cm (5' 3) Wt 180 lb 1.6 oz (81.7 kg) SpO2 98% BMI 31.90 kg/m Physical Exam General: Pleasant, WN WD in no acute distress Pulm: Respirations even and unlabored Ext: Warm, well-perfused, no edema. moves all extremities well, no obvious deformities Psych: Alert and cooperative; normal mood and affect; appropriate attention span and concentration Pelvic: Deferred Assessment/Plan #Post-op s/p D&E for demise She appears to be having an uncomplicated postop recovery. She is cleared to return to all activities. Suspect ongoing bleeding due to expected post-op course and known uterine fibroid. Prescribed 5-day course of TXA to mitigate bleeding. All questions answered. Cleared to return to primary MINING HELPER and AZEB. Patient seen and discussed with Drs. Kumar and Kerry. Cassi Jane MD Resident Physician, PGY-2 Department of Obstetrics & Gynecology Complex Family Planning Fellow Attestation I have seen and discussed Maria Ines Wall with the resident, Dr. Jane. I have evaluated the patient and reviewed the plan and recommendations. I agree with the findings and the plan of care as documented in the resident s note. Viridiana Kumar DO Complex Family Planning Fellow Cosigned by Parul Payne MD at 01/28/2025 6:59 AM CDT Associated attestation - Parul Payne MD - 01/28/2025 6:59 AM CDT I have seen and examined the patient. I agree with the findings and plan of care as documented in the resident/fellow's note. Parul Payne MD, MPH [facility] MINING HELPER Progress Notes - Office Visi t - 01/15/2025 - GA:17w5d 01/15/2025 - 17w5d - Douglas Thomas MD Images from the original note were not included. Postoperative Visit Maria Ines Wall is a 49 y.o. returning for a post op visit. She is 2 weeks s/p D&E for loss at 17 wk due to suspected PROM. She had no clear evidence of cervical insufficiency. She would like consultation with Dr. Mahendra Mora to discuss possible cerclage with her next . She has an appt next month to discuss FET with Dr. Mccann . She is aware that we will test and treat for BV if occurs in her future . Pathology: was benign Maria Ines reports no vaginal bleeding, no pain, and normal healing of the incisions Current Outpatient Medications: acetaminophen, 500 mg, oral, Q6H PRN ascorbic acid (VITAMIN C ORAL), 1 tablet, oral, QAM calcium carbonate (CALCIUM 600 ORAL), Take by mouth calcium polycarbophil (FIBER-TABS ORAL), 1 tablet, oral, QAM cholecalciferol, vitamin D3, (VITAMIN D3 ORAL), 1 tablet, oral, QAM diphenhydrAMINE, 25 mg, oral, Q6H PRN ibuprofen, 600 mg, oral, Q6H PRN levothyroxine, 88 mcg, oral, Daily - 0600 loratadine, 10 mg, oral, QAM MAGNESIUM GLYCINATE ORAL, Take by mouth PNV no.95/ferrous fum/folic ac ( ORAL), 1 tablet, oral, QAM UNABLE TO FIND, 1 each, oral, Daily vitamin B complex, 1 capsule, oral, Daily ZINC ORAL, 1 tablet, oral, QAM There were no vitals taken for this visit. Physical Exam: General: alert, orientated Surgical site: n/a Hat Brusher Machine exam: not indicated at this appointment Assessment/Plan: Meeting all postoperative milestones Pathology reviewed Safe to resume gentle exercise, and sexual activity now Follow up: next or for WWE in 3-6 months Douglas Ho MD Progress Notes - Hospital En counter - 01/03/2025 - GA:16w0d 01/03/2025 - 16w0d - Deya Howard RN Maria Ines declined to meet with this RN today per her RN. Parking pass provided. Irena Howard, MSN, RN, [facility] Bereavement Nurse Coordinator [phone] OUND TELEMARKETING REPRESENTATIVE 01/03/2025 - w0d - Annia Solo MD Transfusion Medicine Blood Bank Note Patient Information: ABO/Rh: O negative Antibody screen: Positive Previous antibodies: Passive anti-D identified at an OSH on 01/02/25 New antibodies identified: passive anti-D Additional testing performed: None Relevant Patient History: Maria Ines Wall is a 49 y.o. woman at 15w6d gestation (dated by embryo transfer). The has been complicated by IVF , hypothyroidism, and uterine fibroids. She presents for D&E for intrauterine demise in the setting of premature rupture of membranes. She received Rhogam on 12/26/2024. Testing Information: The antibody screen was positive. Antibody identification demonstrated antibodies against the D antigen in the patient's plasma. Additional testing was not performed. Detection of anti-D in this patient's plasma is consistent with the patient's known history of RhIg administration on 12/26/2024 and is therefore categorized as a passive anti-D. All other common, clinically significant antibodies have been ruled out. Clinical Relevance: RhIg is a biologic prepared from human plasma that consists of concentrated antibodies directed against the D antigen on red blood cells. Anti-D antibodies may be implicated in hemolytic transfusion reactions with extravascular hemolysis and hemolytic disease of the fetus and . Therefore, anti-D antibodies attributable to RhIg administration may generally be considered clinically significant as long as the passively acquired anti-D is present in the patient's plasma. Therapeutic Relevance: ABO/Rh and crossmatch compatible red blood cell units will be provided for future transfusions. Contact Information: Please contact the [facility] Transfusion Medicine Service at (option 1) with any questions. This report has been prepared by: Annia Solo MD Cosigned by Sherri Mclean MD PhD at 01/04/2025 7:32 PM OUTBOUND TELEMARKETING REPRESENTATIVE OUND TELEMARKETING REPRESENTATIVE OUND TELEMARKETING REPRESENTATIVE OUND TELEMARKETING REPRESENTATIVE Associated attestation - Sherri Mclean MD PhD - 01/04/2025 7:32 PM OUTBOUND TELEMARKETING REPRESENTATIVE Attestation: I have personally reviewed the antibody result and agree with the interpretation contained in this written blood bank report. Sherri Mclean MD PhD 01/03/2025 - w0d - Rowan Moncada, KATRIN Pt. Discharged home with support person via wheelchair. Pt. Verbalized discharge instructions and VSS. Pt.'s IV dc'd and all questions answered and pt. Took all pt. Belongings. OUND TELEMARKETING REPRESENTATIVE 01/03/2025 - w0d - Clari Islas Food And Beverage Operations Manager Clari Bellamy [facility] Spiritual Care Triage: [phone] Pt is not desirous of a commissioning specialist at this time. Spiritual Care remains available should need arise. 01/03/25 0900 Time Spent Start Time 0900 Stop Time 0910 Time Calculation (min) 10 min Clinical Encounter Type Visited With Health care provider Response Type Crisis visit Reason for visit ;Support OUND TELEMARKETING REPRESENTATIVE 01/03/2025 - 0d - Viridiana Kumar DO Family Planning Progress Note Subjective Maria Ines Wall is a 49 y.o. @ 16w0d, dx w/ IUFD, Previable PPROM @ 15w6d who presents for D&E. Did well overnight. Denies abdominal pain, cramping, vaginal bleeding. Ready for procedure today. Scheduled Medications cefOXitin, 1,000 mg, intravenous, Once levothyroxine, 88 mcg, oral, Daily - 0600 metroNIDAZOLE, 500 mg, oral, BID sodium chloride 0.9%, 0.5-20 mL, intra-catheter, Q8H ERNESTINE PRN Medications ondansetron ODT OR ondansetron sodium chloride 0.9% Vitals: Temp: [36.7 C (98.1 F)-37.1 C (98.8 F)] 37.1 C (98.8 F) Pulse: [66-86] 86 BP: (105-143)/(52-81) 105/52 Resp: [16-18] 18 SpO2: [95 %-100 %] 95 % No intake or output data in the 24 hours ending 01/03/25 0606 Physical Exam General: No acute distress. Lungs: Non-labored. Extremities: Warm and well-perfused. Recent Labs Lab Units 01/02/25205501/02/25 0023 WBC K/cumm 13.1* 14.7* HEMOGLOBIN g/dL 13.6 12.7 HEMATOCRIT % 38.4 37.2 PLATELETS K/cumm 204 167 CREATININE mg/dL -- 0.65 AST Units/L -- 28 ALT Units/L -- 13 GLUCOSE mg/dL -- 86 Assessment and Plan Maria Ines Wall is a 49 y.o. @ 16w0d, dx w/ IUFD, Previable PPROM @ 15w6d who presents for D&E. - To OR for D&E procedure - procedure and blood consents signed yesterday 01/02 - Desires prints for memories - Plan for pathology, hospital cremation - Declined cytogenetics due to prev genetic testing - No contraception, desires future - No overt signs of infection, s/p ancef x24 hrs overnight, plan to give Cefoxitin 1g this AM Viridiana Kumar DO 01/03/25 Cosigned by Mary Ellen Meza MD at 01/03/2025 6:24 AM OUTBOUND TELEMARKETING REPRESENTATIVE OUND TELEMARKETING REPRESENTATIVE OUND TELEMARKETING REPRESENTATIVE Associated attestation - Mary Ellen Meza MD - 01/03/2025 6:24 AM OUTBOUND TELEMARKETING REPRESENTATIVE I have seen and examined the patient on 01/03/25. I agree with the findings and plan of care as documented in the resident's/fellow's note. Patient is a 49 y.o. at 16w0d with IUFD at 15w6d in the setting of PPROM desiring procedural management by D&E. Plan for procedure in OR this AM. See H&P for full details. Mary Ellen Meza MD Progress Notes - Hospital En counter - 01/02/2025 - GA:15w6d 01/02/2025 - 15w6d - Douglas Thomas MD OB Antepartum Progress Note Gestational Age: 15w6d Admission Date: 01/01/2025 Length of stay: 0 Admission Diagnosis: with 15 completed weeks gestation [Z3A.15] SUBJECTIVE Maria Ines Wall is a 49 y.o. female at 15w6d . Patient's current complaints: cramping and vaginal bleeding. Maria Ines was admitted last night with red vaginal bleeding and uterine cramping. The cramping resolved with 2 L IVF and the bleeding has slowed and become darker in appearance. FHR is 140s but the amniotic fluid is subjectively low per bedside uls. She denies recent illness, fever, or nausea. She has been trying to PO hydrate at home and recently noticed increased voiding urge. The admission labs revealed BV which the patient reports has not been an issue in the past for her. PO flagyl has been ordered. She was also started empirically on Ancef until her clinical course become clearer. She received Rhogam on 12/26/24 for spotting (at which time no uls evidence of a bleeding was found). Her has been complicated by: S/p IVF with Dr. Mccann Letter done echo ordered 22-24 wk== AMA/50 yr Advised bASA throughout to reduce HTN and stillbirth risks Increase surveillance in 3rd trimester 8cm posterior myoma 10 wk: discussed risks of pain or organ compression Hypothyroid 10 wk: Levothyroxine 88mcg. TSH==> 1.21 28 wk TSH== GBS (+) urine Treated for UTI 11/28/24 with Amox Amp in labor Rh neg Due to spotting at 14 wk, rec'd Rhogam Plan 28 wk Rhogam OBJECTIVE Vitals: 24hr Min/Max: Temp Min: 36.1 C (97 F) Max: 36.7 C (98.1 F) Pulse Min: 63 Max: 78 BP Min: 100/59 Max: 124/77 Resp Min: 20 Max: 20 SpO2 Min: 96 % Max: 99 % Most Recent : Vitals: 01/02/25 0810 BP: 112/66 Pulse: 66 Resp: Temp: 36.7 C (98.1 F) SpO2: 99% PHYSICAL EXAM General appearance: normal mood, no distress Abdomen: gravid, size appropriate for EGA soft, non-tender Extremities: nontender SVE deferred this am to reduce bleeding risk LABS/DIAGNOSTIC TESTING Recent Results (from the past 24 hours) CBC with auto differential Collection Time: 01/02/25 12:23 AM Result Value Ref Range WBC 14.7 (H) 3.8 - 9.9 K/cumm Hgb 12.7 11.9 - 15.5 g/dL Hct 37.2 35.6 - 45.5 % Plt 167 150 - 400 K/cumm MPV 11.3 9.1 - 12.3 fL RBC 4.04 3.90 - 5.20 M/cumm MCV 92.1 81.3 - 96.4 fL MCH 31.4 27.1 - 33.3 pg MCHC 34.1 32.3 - 35.7 g/dL RDW CV 12.2 11.1 - 14.9 % RDW SD 40.7 35.7 - 48.1 fL NRBC abs 0.00 0.00 - 0.01 K/cumm Comprehensive metabolic panel Collection Time: 01/02/25 12:23 AM Result Value Ref Range Sodium 139 135 - 145 mmol/L Potassium, pl 3.7 3.3 - 4.9 mmol/L Chloride 104 97 - 110 mmol/L CO2 19 (L) 22 - 32 mmol/L Anion gap 16 (H) 2 - 15 mmol/L BUN 7 6 - 25 mg/dL Creatinine 0.65 0.60 - 1.10 mg/dL Glucose 86 70 - 199 mg/dL Calcium 8.8 8.5 - 10.3 mg/dL Bilirubin, total 0.4 0.1 - 1.2 mg/dL Protein, pl 6.9 6.5 - 8.5 g/dL Albumin 3.6 3.5 - 5.0 g/dL Alk phos 86 40 - 130 Units/L ALT 13 7 - 45 Units/L AST 28 10 - 45 Units/L Type and screen Collection Time: 01/02/25 12:23 AM Result Value Ref Range ABO Rh O Negative Tad, indirect Positive (A) Urinalysis reflex to microscopic Collection Time: 01/02/25 12:23 AM Result Value Ref Range Color, ur Lauren Yellow Clarity, ur Turbid (A) Clear Specific gravity, ur 1.021 1.003 - 1.030 pH, urine 5.5 Protein, ur ql 1+ (A) Negative Glucose, ur ql Negative Negative Ketones, ur 4+ (A) Negative Bilirubin, ur Negative Negative Blood, ur 3+ (A) Negative Urobilinogen, ur <2.0 <2.0 mg/dL Nitrite, ur Negative Negative Leukocyte esterase, ur 1+ (A) Negative UA reflex comment Reflex to microscopic UA will be performed. Vaginitis panel Vaginal Collection Time: 01/02/25 12:23 AM Specimen: Vaginal Result Value Ref Range Belgica DNA probe Not Detected Not Detected Gardnerella DNA probe Detected (A) Not Detected Trichomonas DNA probe Not Detected Not Detected Differential, auto Collection Time: 01/02/25 12:23 AM Result Value Ref Range Neutrophil abs 12.3 (H) 1.5 - 6.5 K/cumm Imm gran abs 0.1 0.0 - 0.1 K/cumm Lymphocyte abs 1.4 0.8 - 3.3 K/cumm Monocyte abs 0.8 0.2 - 0.8 K/cumm Eosinophil abs 0.0 0.0 - 0.5 K/cumm Basophil abs 0.0 0.0 - 0.1 K/cumm Neutrophil pct 84.0 % Imm gran pct 0.5 % Lymphocyte pct 9.4 % Monocyte pct 5.7 % Eosinophil pct 0.3 % Basophil pct 0.1 % Urinalysis, microscopic only Collection Time: 01/02/25 12:23 AM Result Value Ref Range WBC, ur 21-50 (A) 0 - 5 /HPF RBC, ur >50 (A) 0 - 2 /HPF Epithelial cells, squamous, ur 1-5 0 - 5 /HPF Mucous, ur Present (A) eGFR Collection Time: 01/02/25 12:23 AM Result Value Ref Range eGFR >90 >=60 mL/min/1.73 m2 Check Sample Collection Time: 01/02/25 1:12 AM Result Value Ref Range ABO Rh O Negative Antibody identification Collection Time: 01/02/25 1:37 AM Result Value Ref Range Antibody ID 1 Passive D Antibody, Patient Received RHIG Prepare RBC Collection Time: 01/02/25 2:11 AM Result Value Ref Range Product code [id number] Unit Number [id number] Product Blood Type ONEG Dispense Status CROSSMATCHED Product code H9266V55 Unit Number [id number] Product Blood Type ONEG Dispense Status CROSSMATCHED ASSESSMENT PLAN Maria Ines Wall is a 49 y.o. female at 15w6d weeks gestation. well-being: Overall reassuring by doppler but patient aware that the fetus is previable at this gestation Bleeding/cramping: need to ensure no evidence for abruption: uls has been ordered to check cervical length and AF volume in CWW. [facility] consult has been requested. If cerclage possible, Maria Ines may require transfer to [place] for this procedure. AMA: on bASA which we will hold until bleeding resolves 8cm posterior uterine myoma: not clearly involved in the current clinical picture Hypothyroid: stable on Levothyroxine 88mcg GBS (+) urine: no e/o current UTI but on Ancef as a precaution at this time Rh neg: had Rhogam 1 wk ago My total encounter time was 35 minutes which was spent in the activities documented in the note. This includes time spent prior to the visit and after the visit in direct care of the patient. This time does not include time spent in any separately reportable service. Douglas Ho MD OUND TELEMARKETING REPRESENTATIVE 01/02/2025 - 15w6d - Daysi Venegas CNM RN unable to detect FHR via doppler. BSUS complete. FHR noted at 140s bpm. Minimal movement noted. Minimal amniotic fluid detected on US. There is an order already placed for an MFM US today. Patient c/o continued vaginal bleeding, nursing staff reports discharge to be pink and watery that began overnight. Daysi Venegas CNM OUND TELEMARKETING REPRESENTATIVE Progress Notes - Clinical Wallace pport - 12/26/2024 - GA:14w6d 12/26/2024 - 14w6d - Clari Morrison i Pt came in for ultrasound due to bleeding. O Neg blood type, Rhogam given OUND TELEMARKETING REPRESENTATIVE Progress Notes - Office Visi t - 12/18/2024 - GA:13w5d 12/18/2024 - 13w5d - Douglas Thomas MD Images from the original note were not included. 13w5d OB Return Visit Issues today: none Vitals BP: 102/70 Wt gain: 9 lb (4.082 kg) Vaginal bleeding? no [facility]: Lab Results Component Value Date [id number] O 11/25/2024 [id number] Negative 11/25/2024 RUBELIGGNX 1.67 11/25/2024 [id number] Non Reactive 11/25/2024 HEPBSAG Negative 11/25/2024 HEPCAB Non Reactive 11/25/2024 LABRPR Non Reactive 11/25/2024 URINECULTURE Final report (A) 11/25/2024 MISCRESULT Comment (A) 11/25/2024 MISCRESULT Comment 11/25/2024 [facility]: Lab Results Component Value Date ABORH O Negative 03/26/2021 IDCOOMB Negative 03/16/2021 HEPBSAG Negative 11/25/2024 HEPCAB Non Reactive 11/25/2024 LABRPR Non Reactive 11/25/2024 Prot: Negative Urine Glucose (UA Dipstick): Negative Ketones: Negative (S.005) heart rate was normal today by doppler/US. Actions Today NIPT already drawn Start 81mg bASA qD: Advised patient to start now Problem List Supervision of normal first , antepartum Overview PROBLEM LIST 49 y.o. Estimated Date of Delivery: 06/20/25 S/p IVF with Dr. Mccann Letter done echo ordered 22-24 wk== AMA/50 yr Advised bASA throughout to reduce HTN and stillbirth risks Increase surveillance in 3rd trimester 8cm posterior myoma 10 wk: discussed risks of pain or organ compression Hypothyroid 10 wk: Levothyroxine 88mcg. TSH==> 1.21 28 wk TSH== Referred by: Cousin works on pp at [facility], Dr. 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 [x]Y []N Tdap []Y []declined Baby Gender [x] girl [] boy [] declined echo [x]Y []N RSV []Y []declined Blood Type Lab Results Component Value Date [id number] O 11/25/2024 [id number] Negative 11/25/2024 ABORH O Negative 03/26/2021 1h GCT [] done No results found for: [id number] Flu vaccine [] DONE [] Plans @ work [] Off season [x] declined GBS No results found for: STREPBDNA [] Discussed Peds [] Discussed classes Induction: [] C/S Plans [] 39w [] 40w [] 41w Lab Results Component Value Date RUBELIGGNX 1.67 11/25/2024 [id number] Non Reactive 11/25/2024 HEPBSAG Negative 11/25/2024 HEPCAB Non Reactive 11/25/2024 LABRPR Non Reactive 11/25/2024 URINECULTURE Final report (A) 11/25/2024 MISCRESULT Comment (A) 11/25/2024 MISCRESULT Comment 11/25/2024 [id number] O 11/25/2024 [id number] Negative 11/25/2024 Lab Results Component Value Date [id number] Negative 11/25/2024 [id number] Negative 11/25/2024 [id number] Negative 11/25/2024 FETALSEX Comment 11/25/2024 New Medications Ordered This Visit levothyroxine (SYNTHROID) 88 mcg tablet Sig: Take 1 tablet (88 mcg total) by mouth 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 Chief Complaint: Initial Visit HPI: Maria Ines Wall is a 49 y.o. at 10w3d presents for an initial OB visit. Morning sickness? no Vaginal bleeding? no Problem List Supervision of normal first , antepartum Overview PROBLEM LIST 49 y.o. Estimated Date of Delivery: 06/20/25 S/p IVF with Dr. Mccann Letter done echo ordered 22-24 wk== AMA/50 yr Advised bASA throughout to reduce HTN and stillbirth risks Increase surveillance in 3rd trimester 8cm posterior myoma 10 wk: discussed risks of pain or organ compression Hypothyroid 10 wk: Levothyroxine 88mcg. TSH==> Referred by: Cousin works on pp at [facility], Dr. 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 []N Tdap []Y []declined Baby Gender [] girl [] boy [] declined echo [x]Y []N RSV []Y []declined Blood Type Lab Results Component Value Date ABORH O Negative 03/26/2021 1h GCT [] done No results found for: [id number] Flu vaccine [] DONE [] Plans @ work [] Off season [x] declined GBS No results found for: STREPBDNA [] Discussed Peds [] Discussed classes Induction: [] C/S Plans [] 39w [] 40w [] 41w No results found for: RUBELIGGNX, [id number], HEPBSAG, HEPCAB, LABRPR, CHLAMTRACPCR, NGONORRPCR, URINECULTURE, MISCRESULT, [id number], [id number] No results found for: QGTIBNK75, RRIQAUP35, GSHBGLA13, FETALSEX History: OB History Para Term AB Living 1 0 0 0 0 0 SAB IAB Ectopic Multiple Live Births 0 0 0 0 0 # Outcome Date GA Lbr Lamberto/2nd Weight Sex Type Anes PTL Lv 1 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 She has no past medical history of Awareness under anesthesia, Delayed emergence from general anesthesia, Hard to intubate, Malignant hyperthermia, Postoperative delirium, Pseudocholinesterase deficiency, or Sleep apnea. Surgical: She has a past surgical history that includes Tonsillectomy (1986); Arthroscopic repair ACL (Left, 2014); [place] tooth extraction; and Spinal fusion. Family: Family History Problem Relation Age of Onset Hypothyroidism Mother Heart disease Father h/o bypass Hypertension Father Seizures Father Parkinsonism Father Hypertension Maternal Grandmother Diabetes Maternal Grandmother Early Maternal Grandmother Heart disease Maternal Grandmother Heart attack Maternal Grandmother Cancer Paternal Grandmother Hypertension Paternal Grandfather Stroke Paternal Grandfather No Known Problems Half-Brother No Known Problems Half-Brother No Known Problems Half-Brother Polycystic ovary syndrome Half-Sister Anesthesia problems Neg Hx Breast cancer Neg Hx Social: Patient reports that she has never smoked. She has never been exposed to tobacco smoke. She has never used smokeless tobacco. She reports that she does not use drugs. Patient reports consuming alcoholic drinks monthly or less, with a daily consumption of drinks. Patient denies daily consumption of 6 or more alcoholic drinks at one occasion. Meds Current Outpatient Medications: acetaminophen, 1,000 mg, oral, Q6H ERNESTINE ascorbic acid (VITAMIN C ORAL), 1 tablet, oral, QAM calcium carbonate (CALCIUM 600 ORAL), Take by mouth calcium polycarbophil (FIBER-TABS ORAL), 1 tablet, oral, QAM cholecalciferol, vitamin D3, (VITAMIN D3 ORAL), 1 tablet, oral, QAM coenzyme Q10, 10 mg, oral, Daily diphenhydrAMINE, 25 mg, oral, Q6H PRN estradioL, 2 mg, oral, Daily levothyroxine, 88 mcg, oral, Daily - 0600 loratadine, 10 mg, oral, QAM MAGNESIUM GLYCINATE ORAL, Take by mouth PNV no.95/ferrous fum/folic ac ( ORAL), 1 tablet, oral, QAM progesterone, 100 mg, vaginal, Daily progesterone, 100 mg, oral, Daily progesterone, Inject into the muscle as instructed daily UNABLE TO FIND, 1 each, oral, Daily vitamin B complex, 1 capsule, oral, Daily ZINC ORAL, 1 tablet, oral, QAM Allergies: Patient is allergic to formaldehyde and sulfa (sulfonamide antibiotics). Physical Exam: Vitals: BP 118/74 Wt 188 lb (85.3 kg) BMI 32.27 kg/m Constitutional: She is alert. She appears well-developed and well-nourished. No apparent distress. Breast: There are no masses, lumps, or lesions bilaterally. Bilateral nipples are normal. No axillary lymphadenopathy or cervical lymphadenopathy. Assessment and Plan: Supervision of PNV with folic acid daily. OB labs ordered: OB panel, HIV, urine culture, GC/CT and Pap if it's due. Additional labs as indicated. Carrier screening: donor egg Genetic screening offered with NIPT done today Reviewed course of care and normal Dietary and activity recommendations reviewed. See Note Flowsheet for additional dx Discussed: SAb precautions. Practice policies and general guidelines. Referred to brochure for fotz-sdd-mixbagf medications safe in and remedies for common symptoms of . Discussed appropriate weight gain in . Dietary recommendations reviewed, specifically, limiting caffeine to 200 mg daily. No ETOH, smoking or drug use. Discussed avoiding soft cheeses unless they are made with pasturized milk and avoiding deli meats including hot dogs unless they are thoroughly heated and steaming hot. Advised against eating raw or undercooked meat, poultry or fish. Fish that are high in mercury including shark, tilefish, erlinda mackerel and swordfish should also be avoided. Benefits of regular exercise. Discussed avoiding dangerous activities such as rock climbing, water skiing, snow skiing, roller bleeding. [place] is safe; however, it may cause cramping. Travel up to 34 weeks is typically safe, but she should avoid any Zika areas. Caution against international travel after 28 wk. Office visits frequency Delivery at [facility]. Follow up in 4 weeks. Douglas Ho MD OUND TELEMARKETING REPRESENTATIVE Last Filed Vital Signs Vital Sign Reading [...] Description 06/06/2025 7:30 AM CDT Hospital Encounter [facility] Operating Room [address] [place] [address] Latoya Shine MD [address] [place] [address] [id number] 06/06/2025 7:30 AM CDT - 06/06/2025 11:30 AM CDT Surgery [facility] Operating Room [address] [place] [address] Latoya Shine MD [address] [place] [address] LAPAROSCOPIC MYOMECTOMY WITH CONTAINED MORCELLATION Scheduled Procedures Name Priority Associated Diagnoses Date/Ti me LAPAROSCOPIC MYOMECTOMY Fibroids 06/06/2025 7:30 AM CDT HYSTEROGRAM CHROMOTUBATION Fibroids 06/06/2025 7:30 AM CDT Health Maintenance Due Date Last Done Comments Cervical Cancer Screening 1977 Colon Cancer Screening-Colonoscopy 1977 Depression Screening 1977 DTaP/Tdap/Td Vaccine (1 - Tdap) 02/09/1988 Hepatitis B Screening 1995 Regular Well Visit/Exam 18-64 1995 Influenza Vaccine (#1) 2025 Breast Cancer Screening-Mammogram 01/21/2026 01/21/2025, 12/01/2023, 06/05/2020, Additional history exists Hepatitis C Screening Completed 11/25/2024 Pneumococcal vaccine <65 Aged Out No longer eligible based on patient's age to complete this topic Goals Goal Patient Goal Type Associated Problems Recent Progress Patient-Stated? Author CCM Chronic Pain Care Plan Chronic Care Management No Sofy Da Silva RN Note: Problem: Chronic Pain Goals: 1. Minimize further functional decline 2. Maximize quality of life 3. Control pain Strategies: - Activity/exercise program recommendation - Conservative stepwise pain medicine strategy with multi-disciplinary approach - Recommend healthy lifestyle strategies and compensatory methods as needed Medical Devices Implanted Type Area Manager R D Device Identifier Shelf Expiration Date Model / Serial / Lot [employer] 700-025 I Factor Allograft Putty Syringe Graft 2.5cc Bone - [id number] Implanted:Qty: 1 on 03/26/2021 by Morgan Hardin MD at [facility] [employer] [id number] 12/06/2023 700-025 / / [id number] [employer] [id number] Cage Spinal Cervical 14d X 16w X 7h 6 Degree - [id number] Implanted:Qty: 1 on 03/26/2021 by Morgan Hardin MD at [facility] [employer] [id number] 03/27/2025 [id number] / / [id number] [employer] [id number] Cage Spinal Cervical 14d X 16w X 7h 6 Degree - [id number] Implanted:Qty: 1 on 03/26/2021 by Morgan Hardin MD at [facility] [employer] [id number] 05/25/2025 [id number] / / [id number] [employer] [id number] Cage Spinal Cervical 14d X 16w X 7h 6 Degree - [id number] Implanted:Qty: 1 on 03/26/2021 by Morgan Hardin MD at [facility] [employer] [id number] 05/25/2025 [id number] / / [id number] [employer] [id number] Maxan 48mm Level 3 Spine Cervical Anterior Plate Bone Titanium - [id number] Implanted:Qty: 1 on 03/26/2021 by Morgan Hardin MD at [facility] [employer] [id number] / / [employer] [id number] Maxan 4mm 14mm Variable Angle Self Drill Spine Screw Bone - [id number] Implanted:Qty: 8 on 03/26/2021 by Morgan Hardin MD at [facility] [employer] [id number] / / Procedures Procedure Name Priority Date/Time Associated Diagnosis Comments CBC WITHOUT DIFFERENTIAL Routine 04/08/2025 9:08 AM CDT Fibroid MRI PELVIS W WO CONTRAST Schedule Routine, Read Routine (OP Routine) 03/04/2025 7:55 PM CDT Uterine leiomyoma, unspecified location SCREENING MAMMOGRAM BILATERAL W TANI Schedule Routine, Read Routine (OP Routine) 01/21/2025 12:42 PM CDT Screening mammogram, encounter for HEPATITIS C AB W/REFL TO HCV RNA, QN, PCR (REFL) Routine 11/25/2024 12:28 PM OUTBOUND TELEMARKETING REPRESENTATIVE Encounter for supervision of normal first in first trimester from Last 3 Months or Most Recently Relevant to Health Maintenance Results * (ABNORMAL) CBC without differential (04/08/2025 9:08 AM CDT) WBC 6.79 3.80 - 9.90 K/cumm Hgb 11.2(L) 11.9 - 15.5 g/dL [facility] Hct 33.8(L) 35.6 - 45.5 % [facility] Plt 214 150 - 400 K/cumm [facility] MPV 11.4 9.1 - 12.3 fL [facility] RBC 4.20 3.90 - 5.20 M/cumm [facility] MCV 80.5(L) 81.3 - 96.4 fL [facility] MCH 26.7(L) 27.1 - 33.3 pg [facility] MCHC 33.1 32.3 - 35.7 g/dL [facility] RDW CV 15.3(H) 11.1 - 14.9 % [facility] RDW SD 44.3 35.7 - 48.1 fL [facility] NRBC abs 0.00 0.00 - 0.01 K/cumm [facility] Blood 04/08/2025 9:08 AM CDT 04/08/2025 10:19 AM CDT us Latoya Shine MD LAB BLOOD ORDERABLES F inal Result [facility] Department [place] [address] * MRI Pelvis W WO Contrast (03/04/2025 [...] by: Brianna Jung M.D. Douglas Ho MD [facility] MRI PROCEDURES Final Result * Screening Mammogram Bilateral W Tani (01/21/2025 12:42 PM CDT) Anatomical Region Laterality Modality Breast Bilateral Mammography Narrative 01/22/2025 6:49 AM CDT Examination: Screening Mammogram Bilateral W Tani: 01/21/25 Prior Study Comparisons: Relevant prior studies [...] Assessment: 2 - Benign Douglas Ho MD G MAMMO PROCEDURES Tequila l Result * HEPATITIS C AB W/REFL TO HCV RNA, QN, PCR (REFL) (11/25/2024 12:28 PM OUTBOUND TELEMARKETING REPRESENTATIVE) Hep C Ab Non Reactive Non Reactive [facility] - 01 Blood 11/25/2024 12:2 8 PM OUTBOUND TELEMARKETING REPRESENTATIVE 11/25/2024 Narrative [facility] - 11/26/2024 5:35 AM OUTBOUND TELEMARKETING REPRESENTATIVE Performed at: - [facility] [address] [id number] Interpretive Naturalist: Karlo Chavarria PhD, Phone: [phone] Douglas Ho MD LAB BLOOD ORDERABLES Tequila l Result [facility] - 01 from Last 3 Months or Most Recently Relevant [place] [address] [employer] [facility] Advance Directives For more information, please contact: [phone] Documents on File Type Date Recorded 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
--- OUTSIDE RECORDS SUMMARY | 2025-05-21 12:20 | XMS_ITS | Encounter Summary ---
Author Organization [facility] Address [address] [place] [address] Care Team Providers Care Vice President Of Instruction Name Role Phone Ryann Gillis [facility] Primary Care Provider Kalie Castro SENIOR ERP CONSULTANT Unavailable [phone] Donnie Alfaro MD Primary Care Provider [phone] Encounter Details Date Type Department Care Team (Late st Contact Info) Description 09/07/2023 MyCHepa Washt Message Enc [facility] Medical [address] [address] Ryann Gillis FNP-TLYER Calcium Social History Tobacco Use Types Packs/Day Years [...] Description 02/10/2026 8:[address] [facility] [place] [address] Caden Maldonado MD [address] [address] documented as of this encounter Visit Diagnoses Not on filedocumented in this encounter Additional Health Concerns Assessment Noted Time PHQ-9 Depression Total Score: 1 09/01/20 23 8:09 AM CDT documented as of this encounter Care Teams Vice President Of Instruction Relationship Specialty Start Date End Date [facility] P[facility] - General NURSE PRACTITIONER 08/28/20 07/06/24 Donnie Alfaro MD [facility] [place] [phone] PCP - General FAMILY PRACTICE 07/07/24 Kalie Burt NP [address] [place] [address] NURSE PRACTITIONER 08/28/20 documented as of this encounter
[2025-05-21 12:26] VITALS: BP 108/67; PULSE 75; RESP 16; TEMP 36.5; O2SAT 99
--- OUTSIDE RECORDS SUMMARY | 2025-05-21 13:06 | XMS_ITS | Encounter Summary ---
Author Organization [facility] Address [address] [place] [address] Phone Care Team Providers Care Automotive Refinisher Name Role Phone Unknown, Notinfile Primary Care Provider Unavail able Encounter Details Date Type Department Care Team (Latest Contact Info) Description 04/09/2025 [facility] [address] [facility] 7th Floor [address] [place] [address] Latoya Shine MD [address] [facility], [facility] [address] [place], [place] [id number] CBC without differential Social History Tobacco Use [...] and heating? 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 Not on file Not on file Not on file documented as of this encounter Plan of Treatment Upcoming Encounters Date Type Department Care Team (Latest Contact Info) Description 06/06/2025 7:30 AM CDT Hospital Encounter [facility] Operating Room [address] [place] [phone] Latoya Shine MD [address] [facility], [facility] [address] [place] [address] 06/06/2025 7:30 AM CDT - 06/06/2025 11:30 AM CDT Surgery [facility] Operating Room [address] [place] [id number] Latoya Shine MD [address] [facility], [facility] [address] [place], [place] [id number] LAPAROSCOPIC MYOMECTOMY WITH CONTAINED MORCELLATION Scheduled Procedures [...] on filedocumented in this encounter Care Teams Automotive Refinisher Relationship Specialty Start Date End Date Unknown, Notinfile PCP - General 01/02/25 documented as of this encounter
--- OUTSIDE RECORDS SUMMARY | 2025-05-21 13:06 | XMS_ITS | Clinical Summary ---
Author Organization [facility] Address [address] [place] [address] Care Team Providers Care Grey Tender Name Role Phone Unknown, Notinfile Primary Care [...] 1 tablet (88 mcg total) by mouth mathematics lecturer before breakfast 90 tablet 3 5 Active [...] DAY DIRECTED. TAKE ACTIVE PILLS ONLY Active [id number] CORBIC ACID ORAL 4 Active ascorbic acid [...] Referred by: Cousin works on pp at [employer], Dr. 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 []N Tdap []Y []declined Baby Gender [x] girl [] boy [] declined echo [x]Y []N RSV []Y []declined Blood Type Lab Results Component Value Date [id number] O 11/25/2024 [id number] Negative 11/25/2024 ABORH O Negative 03/26/2021 1h GCT [] done No results found for: [id number] Flu vaccine [] DONE [] Plans @ work [] Off season [x] declined GBS No results found for: STREPBDNA [] Discussed Peds [] Discussed classes Induction: [] C/S Plans [] 39w [] 40w [] 41w Lab Results Component Value Date RUBELIGGNX 1.67 11/25/2024 [id number] Non Reactive 11/25/2024 HEPBSAG Negative 11/25/2024 HEPCAB Non Reactive 11/25/2024 LABRPR Non Reactive 11/25/2024 URINECULTURE Final report (A) 11/25/2024 MISCRESULT Comment (A) 11/25/2024 MISCRESULT Comment 11/25/2024 [id number] O 11/25/2024 [id number] Negative 11/25/2024 Lab Results Component Value Date VMGAQDM98 Negative 11/25/2024 IXXCYLU80 Negative 11/25/2024 NOUYVOH88 Negative 11/25/2024 FETALSEX Comment 11/25/2024 Cervical myelopathy 03/04/2021 11/20/19 Overview (03/04/2021): Added automatically from request for surgery [id number] 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 [place] Outpatient Health 7th Floor [address] [place] [address] Latoya Shine MD CBC without differential 04/08/2025 9:00 AM CDT Lab [facility] [address] [facility] [place] [address] Fibroid 04/08/2025 8:15 AM CDT Office Visit [facility] [address] 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 Not hard at all 01/01/2025 [facility] [place] [facility] - Occupational Stress [...] any time in the past 12 [facility], were you homeless or living in [...] on file Legal Sex Female 8:47 PM MOLDER OFFBEARER Gender Identity Not on file Sexual Orientation [...] Shine's request. I messaged the patient through [employer] with the plan as well. Douglas Ho MD Progress Notes - Office Steviei t - 01/23/2025 - GA:18w6d 01/23/2025 - wd - Cassi Jane MD BIOMETRICIAN POST-OP PROGRESS NOTE Patient ID: Maria Ines Wall is a 49 y.o. female Subjective Chief Complaint: Post-op visit HPI: Maria Ines Wall is a 49 y.o. now 3 weeks s/p uncomplicated D&E for IUFD at 15w6d iso previable PPROM. Presented to [facility] on 01/18 after passing tissue at home. 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 All [...] questions answered. Cleared to return to primary HAT MAKER and AZEB. Patient seen and discussed with [...] the resident/fellow's note. Parul Payne MD, MPH [facility] HAT MAKER Progress Notes - Office Visi t - [...] Exam: General: alert, orientated Surgical site: n/a Escalator Constructor exam: not indicated at this appointment Assessment/Plan: [...] Parking pass provided. Irena Howard, MSN, RN, [facility] Bereavement Nurse Coordinator [phone] ER OFFBEARER 01/03/2025 - w0d - Annia Solo MD [...] future transfusions. Contact Information: Please contact the [facility] Transfusion Medicine Service at (option 1) with any questions. This report has been prepared by: Annia Solo MD Cosigned by Sherri Mclean MD PhD at 01/04/2025 7:32 PM MOLDER OFFBEARER ER OFFBEARER ER OFFBEARER ER OFFBEARER Associated attestation - Sherri Mclean MD PhD - 01/04/2025 7:32 PM MOLDER OFFBEARER Attestation: I have personally reviewed the antibody result and agree with the interpretation contained in this written blood bank report. Sherri Mclean MD PhD 01/03/2025 - w0d - Rowan Moncada, KATRIN Pt. Discharged home with support person via wheelchair. Pt. Verbalized discharge instructions and VSS. Pt.'s IV dc'd and all questions answered and pt. Took all pt. Belongings. ER OFFBEARER 01/03/2025 - w0d - Clari Islas Coagulator Clari Bellamy [facility] Spiritual Care Triage: [phone] Pt is not desirous of a waybill clerk at this time. Spiritual Care remains available should need arise. 01/03/25 0900 Time Spent Start Time 0900 Stop Time 0910 Time Calculation (min) 10 min Clinical Encounter Type Visited With Health care provider Response Type Crisis visit Reason for visit ;Support ER OFFBEARER 01/03/2025 - 0d - Viridiana Kumar DO [...] Ellen Meza MD at 01/03/2025 6:24 AM MOLDER OFFBEARER ER OFFBEARER ER OFFBEARER Associated attestation - Mary Ellen Meza MD - 01/03/2025 6:24 AM MOLDER OFFBEARER I have seen and examined the patient [...] AM Result Value Ref Range Product code T5555N74 Unit Number [id number] Product Blood Type ONEG Dispense Status CROSSMATCHED Product code P1883N69 Unit Number [id number] Product Blood Type ONEG Dispense Status CROSSMATCHED [...] possible, Maria Ines may require transfer to [place] for this procedure. AMA: on bASA which [...] any separately reportable service. Douglas Ho MD ER OFFBEARER 01/02/2025 - 15w6d - Daysi Venegas CNM RN unable to detect FHR via doppler. BSUS complete. FHR noted at 140s bpm. Minimal movement noted. Minimal amniotic fluid detected on US. There is an order already placed for an MFM US today. Patient c/o continued vaginal bleeding, nursing staff reports discharge to be pink and watery that began overnight. Daysi Venegas CNM ER OFFBEARER Progress Notes - Clinical Wallace pport - 12/26/2024 - GA:14w6d 12/26/2024 - 14w6d - Clari Morrison i Pt came in for ultrasound due to bleeding. O Neg blood type, Rhogam given ER OFFBEARER Progress Notes - Office Visi t - 12/18/2024 - GA:13w5d 12/18/2024 - 13w5d - Douglas Thomas MD Images from the original note were not included. 13w5d OB Return Visit Issues today: none Vitals BP: 102/70 Wt gain: 9 lb (4.082 kg) Vaginal bleeding? no [facility]: Lab Results Component Value Date [id number] O 11/25/2024 [id number] Negative 11/25/2024 RUBELIGGNX 1.67 11/25/2024 [id number] Non Reactive 11/25/2024 HEPBSAG Negative 11/25/2024 HEPCAB Non Reactive 11/25/2024 LABRPR Non Reactive 11/25/2024 URINECULTURE Final report (A) 11/25/2024 MISCRESULT Comment (A) 11/25/2024 MISCRESULT Comment 11/25/2024 [facility]: Lab Results Component Value Date [...] Referred by: Cousin works on pp at [employer], Dr. 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 []N Tdap []Y []declined Baby Gender [x] girl [] boy [] declined echo [x]Y []N RSV []Y []declined Blood Type Lab Results Component Value Date BLF26274 O 11/25/2024 EAK90720 Negative 11/25/2024 ABORH O Negative 03/26/2021 1h GCT [] done No results found for: BKAEZBN97TBV Flu vaccine [] DONE [] Plans @ work [] Off season [x] declined GBS No results found for: STREPBDNA [] Discussed Peds [] Discussed classes Induction: [] C/S Plans [] 39w [] 40w [] 41w Lab Results Component Value Date RUBELIGGNX 1.67 11/25/2024 [id number] Non Reactive 11/25/2024 HEPBSAG Negative 11/25/2024 HEPCAB Non Reactive 11/25/2024 LABRPR Non Reactive 11/25/2024 URINECULTURE Final report (A) 11/25/2024 MISCRESULT Comment (A) 11/25/2024 MISCRESULT Comment 11/25/2024 [id number] O 11/25/2024 GRV01142 Negative 11/25/2024 Lab Results Component Value Date ZUAYTEW24 Negative 11/25/2024 XJNTKFX90 Negative 11/25/2024 RUHEKEF06 Negative 11/25/2024 FETALSEX Comment 11/25/2024 New Medications Ordered This Visit levothyroxine (SYNTHROID) 88 mcg tablet Sig: Take 1 tablet (88 mcg total) by mouth mathematics lecturer before breakfast Dispense: 90 tablet Refill: 3 Douglas Ho MD ER OFFBEARER Progress Notes - Office Visi t - [...] Referred by: Cousin works on pp at [employer], Dr. Mccann, [place] anesthesiologist Partner Name She is single [] [...] GCT [] done No results found for: AITPHRK74TSU Flu vaccine [] DONE [] Plans @ work [] Off season [x] declined GBS No results found for: STREPBDNA [] Discussed Peds [] Discussed classes Induction: [] C/S Plans [] 39w [] 40w [] 41w No results found for: RUBELIGGNX, NHLDFZU8VUM, HEPBSAG, HEPCAB, LABRPR, CHLAMTRACPCR, NGONORRPCR, URINECULTURE, MISCRESULT, MQR74372, BEL40120 No results found for: JTEZIMY29, FOQUGKX43, MAGKAQD56, FETALSEX History: OB History Para Term AB Living 1 0 0 0 0 0 SAB IAB Ectopic Multiple Live Births 0 0 0 0 0 # Outcome Date GA Lbr Lamberto/2nd Weight Sex Type Anes PTL Lv 1 Current BIOMETRICIAN: Last pap:2023 Results: Normal History of HSV: [...] Tonsillectomy (1986); Arthroscopic repair ACL (Left, 2014); [place] tooth extraction; and Spinal fusion. Family: Family [...] and general guidelines. Referred to brochure for xfiu-row-dseuapu medications safe in and remedies for common [...] climbing, water skiing, snow skiing, roller bleeding. Cable is safe; however, it may cause cramping. Travel up to 34 weeks is typically safe, but she should avoid any Zika areas. Caution against international travel after 28 wk. Office visits frequency Delivery at [facility]. Follow up in 4 weeks. Douglas Ho MD ER OFFBEARER Last Filed Vital Signs Vital Sign Reading [...] Description 06/06/2025 7:30 AM CDT Hospital Encounter [facility] Operating Room [address] [place] [address] Latoya Shine MD [address] [place] [address] [id number] 06/06/2025 7:30 AM CDT - 06/06/2025 11:30 AM CDT Surgery [facility] Operating Room [address] [place] [address] Latoya Shine MD [address] [place] [address] LAPAROSCOPIC MYOMECTOMY WITH CONTAINED MORCELLATION Scheduled Procedures [...] as needed Medical Devices Implanted Type Area Director Of Rehabilitative Services Device Identifier Shelf Expiration Date Model / Serial / Lot [employer] 700-025 I Factor Allograft Putty Syringe Graft 2.5cc Bone - [id number] Implanted:Qty: 1 on 03/26/2021 by Morgan Hardin MD at [facility] Spine Cervical [employer] [id number] 12/06/2023 700-025 / / [id number] [employer] [id number] Cage Spinal Cervical 14d X 16w X 7h 6 Degree - [id number] Implanted:Qty: 1 on 03/26/2021 by Morgan Hardin MD at [facility] Spine Cervical [employer] [id number] 03/27/2025 [id number] / / [id number] [employer] [id number] Cage Spinal Cervical 14d X 16w X 7h 6 Degree - [id number] Implanted:Qty: 1 on 03/26/2021 by Morgan Hardin MD at [facility] Spine Cervical [employer] [id number] 05/25/2025 [id number] / / [id number] [employer] [id number] Cage Spinal Cervical 14d X 16w X 7h 6 Degree - [id number] Implanted:Qty: 1 on 03/26/2021 by Morgan Hardin MD at [facility] Spine Cervical [employer] [id number] 05/25/2025 [id number] / / [id number] [employer] [id number] Maxan 48mm Level 3 Spine Cervical Anterior Plate Bone Titanium - [id number] Implanted:Qty: 1 on 03/26/2021 by Morgan Hardin MD at [facility] Spine Cervical [employer] [id number] / / [employer] [id number] Maxan 4mm 14mm Variable Angle Self Drill Spine Screw Bone - [id number] Implanted:Qty: 8 on 03/26/2021 by Morgan Hardin MD at [facility] Spine Cervical [employer] [id number] / / Procedures Procedure Name Priority Date/Time [...] QN, PCR (REFL) Routine 11/25/2024 12:28 PM MOLDER OFFBEARER Encounter for supervision of normal first in first trimester from Last 3 Months or Most Recently Relevant to Health Maintenance Results * (ABNORMAL) CBC without differential (04/08/2025 9:08 AM CDT) WBC 6.79 3.80 - 9.90 K/cumm Hgb 11.2(L) 11.9 - 15.5 g/dL [facility] Hct 33.8(L) 35.6 - 45.5 % [facility] Plt 214 150 - 400 K/cumm [facility] MPV 11.4 9.1 - 12.3 fL [facility] RBC 4.20 3.90 - 5.20 M/cumm [facility] MCV 80.5(L) 81.3 - 96.4 fL [facility] MCH 26.7(L) 27.1 - 33.3 pg [facility] MCHC 33.1 32.3 - 35.7 g/dL [facility] RDW CV 15.3(H) 11.1 - 14.9 % [facility] RDW SD 44.3 35.7 - 48.1 fL [facility] NRBC abs 0.00 0.00 - 0.01 K/cumm [facility] Blood 04/08/2025 9:08 AM CDT 04/08/2025 10:19 AM CDT us Latoya Shine MD LAB BLOOD ORDERABLES F inal Result [facility] Department [place] [address] * MRI Pelvis W WO Contrast (03/04/2025 [...] by: Brianna Jung M.D. Douglas Ho MD [facility] MRI PROCEDURES Final Result * Screening Mammogram [...] RNA, QN, PCR (REFL) (11/25/2024 12:28 PM MOLDER OFFBEARER) Hep C Ab Non Reactive Non Reactive [facility] - 01 Blood 11/25/2024 12:2 8 PM MOLDER OFFBEARER 11/25/2024 Narrative [facility] - 11/26/2024 5:35 AM MOLDER OFFBEARER Performed at: - [facility] [address] [id number] Lay Midwife: Karlo Chavarria PhD, Phone: [phone] Douglas Ho MD LAB BLOOD ORDERABLES Tequila l Result [facility] 01 from Last 3 Months or Most Recently Relevant [place] [address] [place] [employer] [place] [facility] [place] [facility] Advance Directives For more information, please contact: [phone] Documents on File Type Date Recorded Patient Mobile Disc Jockey Expl anation ADVANCE DIRECTIVE 03/26/2021 5:46 AM * Full Code (Latest Code Status on File) Date Activated Date Inactivated Comments 01/02/2025 12:37 AM 01/02/2025 6:43 PM * Full Code Date Activated Date Inactivated Comments 03/26/2021 4:25 PM 03/27/2021 4:37 PM Care Teams Grey Tender Relationship Specialty Start Date End Date Unknown, Notinfile PCP - General 01/02/25
--- OUTSIDE RECORDS SUMMARY | 2025-05-21 13:06 | XMS_ITS | Clinical Summary ---
Author Organization [facility] Address [address] [place] [address] Care Team Providers Care Third Shift Lieutenant Name Role Phone Kalie Burt NP Unavailable [phone] Donnie Alfaro MD Primary Care Provider [phone] Allergies Active Allergy Reactions Criticality Noted Date Comments Formaldehyde Hives,Unknown High 04/15/2015 IN BUBBLE BATH Sulfa Antibiotics Nausea Only,Other (s ee comment) Low 05/01/2015 metallic taste in mouth Medications ESTARYLLA 0.25-35 MG-MCG tablet TAKE 1 TABLET BY MOUTH EVERY DAY DIRECTED. TAKE ACTIVE PILLS ONLY 3 Active phentermine (ADIPEX-P) 37.5 MG capsuleIndicatio ns:Morbid obesity due to excess calories ([facility]),BMI 32.0-32.9,adult TAKE 1 CAPSULE(37.5 MG) BY MOUTH BEFORE BREAKFAST 30 capsule 3 Active topiramate (TOPAMAX) 25 MG tabletIndication s:Morbid obesity due to excess calories ([facility]),BMI 32.0-32.9,adult TAKE 1 TABLET(25 MG) BY MOUTH DAILY 90 tablet 4 Active levothyroxine (SYNTHROID) 75 MCG tabletIndication s:Hypothyroidism , unspecified type Take 1 tablet (75 mcg total) by mouth every morning. 30 tablet 4 Active Active Problems Patient Care Coordination No te Formatting of this note migh t be different from the original. 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 Intramural [...] Info) Description 02/10/2026 8:00 AM CDT Appointment [facility] [address] [place] [address] Caden Maldonado MD [address] [place] [phone] Health Maintenance Due Date Last Done Comments [...] Physical 09/01/2024 09/01/2023, 07/30/2021, 06/15/2020 PHQ-2 (Physician [place]) 11/06/2024 09/01/2023 Mammogram Screening 12/13/2025 12/13/2023, 12/13/2023, [...] REFLEX TO HPV Routine 11/18/2015 12:00 AM [employer] from Last 3 Months or Most Recently Relevant to Health Maintenance Results * MAMMOGRAM GENERIC (SCAN ORDER) (12/13/2023) Anatomical Region Laterality Modality Other 12/13/2023 [facility] Scanned SCANNING Final Resu lt * HEPATITIS C ANTIBODY W/RFX TO HCV RNA ([facility] ONLY) (09/01/2023 9:31 AM CDT) HEPATITIS C AB NON-REACT MIA NON-REACT MIA [facility] Comment: HCV antibody was non-reactive. There is no laboratory evidence of HCV infection. In most cases, no further action is required. However, if recent HCV exposure is suspected, a test for HCV RNA (test code 42790) is suggested. For additional information please refer to http://education.Hypereight/faq/VHI00m1 (This link is being provided for informational/ educational purposes only.) 09/01/2023 9:31 AM CDT 09/02/2023 6:38 AM CDT Narrative Resulting Agency Comment Performing Organization Information: Site ID: [place] Name: [facility] Address: [address] [place] [id number] Director: Placido Ramirez MD Ryann Gillis [facility] Final Resul t JASMINE CRENSHAW [employer] [facility] [id number] [place] [address], * [facility]REPATH PAP [place] REFLEX TO HPV (11/18/2015 12:00 AM [employer]) COMMENT [facility] T O EPIC CONVERSION Comment: Result Comment: NEGATIVE FOR INTRAEPITHELIAL LESION AND MALIGNANCY. CELLULAR CHANGES ASSOCIATED WITH INFLAMMATION ARE PRESENT. THIS SPECIMEN WAS RESCREENED PART OF OUR FOOT CASTER PROGRAM. STATEMENT OF ADEQUACY: [facility] TO EPIC CONVERSION Comment: Result Comment: Satisfactory for evaluation. Endocervical and/or squamous metaplastic cells (endocervical component) are present. PRIMARY DIAGNOSIS: M [facility] TO EPIC CONVERSION Comment:Result Comment: Z12. 4 COMMENT [facility] T O EPIC CONVERSION Comment:Result Comment: Omari Arellano, Vp Treasurer (ASCP) REVIEWED BY [facility] TO EPIC CONVERSION Comment:Result Comment: Tam Sanchez, Supervisory Vp Treasurer (ASCP) COMMENT . [facility] T O EPIC [...] TO EPIC CONVERSION - 11/27/2015 6:42 AM [employer] Result Communication: No patient communication needed at this time Homar Rivero MD PATHOLOGY/CYTOLOGY ORDERA BLES Final Result [facility] TO EPIC CONVERSION from Last 3 Months or Most Recently Relevant to Health Maintenance Insurance Care Teams Third Shift Lieutenant Relationship Specialty Start Date End Date Donnie Alfaro MD [address] [facility] [place] [phone] PCP - General FAMILY PRACTICE 07/07/24 Kalie Burt NP [address] [facility] [place] [phone] NURSE PRACTITIONER 08/28/20
--- OUTSIDE RECORDS SUMMARY | 2025-05-21 13:06 | XMS_ITS | Referral Summary ---
Author Organization [facility] Address [address] [place] [address] Care Team Providers Care Enterprise Sales Person Name Role Phone Unknown, Notinfile Primary Care Provider Unavail able Encounters Date Type Department Care Team Description 04/09/2025 Results Follow-Up [facility] [address] [place] [address] Outpatient Health 7th Floor [address] [place] [phone] Latoya Shine MD CBC without differential 04/08/2025 9:00 AM CDT Lab [facility] [address] [place] [address] Fibroid 04/08/2025 8:15 AM CDT Office Visit [facility] [address] [place] [address] 7th Floor [address] [place] [address] Latoya Shine MD Abnormal uterine bleeding (AUB) (Primary Dx); Fibroid 03/04/2025 6:36 PM CDT - 03/04/2025 11:59 PM CDT Hospital Encounter [facility] - Imaging [address] [place] [address] Uterine leiomyoma, unspecified location Discharge [...] 1 tablet (88 mcg total) by mouth curb worker before breakfast 90 tablet 3 5 Active [...] DAY DIRECTED. 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 [x]Y []N Tdap []Y []declined Baby Gender [x] girl [] boy [] declined echo [x]Y []N RSV []Y []declined Blood Type Lab Results Component Value Date [id number] O 11/25/2024 [id number] Negative 11/25/2024 ABORH O Negative 03/26/2021 1h GCT [] done No results found for: [id number] Flu vaccine [] DONE [] Plans @ work [] Off season [x] declined GBS No results found for: STREPBDNA [] Discussed Peds [] Discussed classes Induction: [] C/S Plans [] 39w [] 40w [] 41w Lab Results Component Value Date RUBELIGGNX 1.67 11/25/2024 [id number] Non Reactive 11/25/2024 HEPBSAG Negative 11/25/2024 HEPCAB Non Reactive 11/25/2024 LABRPR Non Reactive 11/25/2024 URINECULTURE Final report (A) 11/25/2024 MISCRESULT Comment (A) 11/25/2024 MISCRESULT Comment 11/25/2024 [id number] O 11/25/2024 [id number] Negative 11/25/2024 Lab Results Component Value Date [id number] Negative 11/25/2024 [id number] Negative 11/25/2024 [id number] Negative 11/25/2024 FETALSEX Comment 11/25/2024 Cervical myelopathy 03/04/2021 11/20/19 Overview (03/04/2021): Added automatically from request for surgery [id number] 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 11/20/2024 [...] and heating? Not hard at all 01/01/2025 [facility] [place] [facility] - Occupational Stress [...] any time in the past 12 m [facility], were you homeless or living in a mcc (including now)? No 01/01/2025 Personal Safety Answer Date Recorded Have you ever been in or are you currently in a harmful physical or emotional relationship or is someone making you feel afraid or unsafe? Denies 01/18/2025 Comments No Sex and Gender Information Value Date Recorded Sex Assigned at Not on file Legal Sex Female 8:47 PM BINDERY MACHINE TENDER Gender Identity Not on file Sexual Orientation [...] Description 06/06/2025 7:30 AM CDT Hospital Encounter [facility] [address] [place] [phone] Latoya Shine MD [address] [place] [phone] 06/06/2025 7:30 AM CDT - 06/06/2025 11:30 AM CDT Surgery [facility] [address] [place] [phone] Latoya Shine MD [address] [place] [address] LAPAROSCOPIC MYOMECTOMY WITH CONTAINED MORCELLATION Scheduled [...] as needed Medical Devices Implanted Type Area Music Publisher Device Identifier Shelf Expiration Date Model / Serial / Lot [employer] 700-025 I Factor Allograft Putty Syringe Graft 2.5cc Bone - [id number] Implanted:Qty: 1 on 03/26/2021 by Morgan Hardin MD at [facility] Spine Cervical [employer] [id number] 12/06/2023-025 / / [id number] [employer] [id number] Cage Spinal Cervical 14d X 16w X 7h 6 Degree - [id number] Implanted:Qty: 1 on 03/26/2021 by Morgan Hardin MD at [facility] Spine Cervical [employer] [id number] 03/27/2025 [id number] / / [id number] [employer] [id number] Cage Spinal Cervical 14d X 16w X 7h 6 Degree - [id number] Implanted:Qty: 1 on 03/26/2021 by Morgan Hardin MD at [facility] Spine Cervical [employer] [id number] 05/25/2025 [id number] / / [id number] [employer] [id number] Cage Spinal Cervical 14d X 16w X 7h 6 Degree - [id number] Implanted:Qty: 1 on 03/26/2021 by Morgan Hardin MD at [facility] Spine Cervical [employer] [id number] 05/25/2025 [id number] / / [id number] [employer] [id number] Maxan 48mm Level 3 Spine Cervical Anterior Plate Bone Titanium - [id number] Implanted:Qty: 1 on 03/26/2021 by Morgan Hardin MD at [facility] Spine Cervical [employer] [id number] / / [employer] [id number] Maxan 4mm 14mm Variable Angle Self Drill Spine Screw Bone - [id number] Implanted:Qty: 8 on 03/26/2021 by Morgan Hardin MD at [facility] Spine Cervical [employer] [id number] / / Procedures Procedure Name Priority Date/Time [...] QN, PCR (REFL) Routine 11/25/2024 12:28 PM BINDERY MACHINE TENDER Encounter for supervision of normal first in first trimester from Last 3 Months or Most Recently Relevant to Health Maintenance Results * (ABNORMAL) CBC without differential (04/08/2025 9:08 AM CDT) WBC 6.79 3.80 - 9.90 K/cumm Hgb 11.2(L) 11.9 - 15.5 g/dL [facility] Hct 33.8(L) 35.6 - 45.5 % [facility] Plt 214 150 - 400 K/cumm [facility] MPV 11.4 9.1 - 12.3 fL [facility] RBC 4.20 3.90 - 5.20 M/cumm [facility] MCV 80.5(L) 81.3 - 96.4 fL [facility] MCH 26.7(L) 27.1 - 33.3 pg [facility] MCHC 33.1 32.3 - 35.7 g/dL [facility] RDW CV 15.3(H) 11.1 - 14.9 % [facility] RDW SD 44.3 35.7 - 48.1 fL [facility] NRBC abs 0.00 0.00 - 0.01 K/cumm [facility] Blood 04/08/2025 9:08 AM CDT 04/08/2025 10:19 AM CDT us Latoya Shine MD LAB BLOOD ORDERABLES F inal Result [facility] Department [place] [address] * MRI Pelvis W WO Contrast [...] by: Brianna Jung M.D. Douglas Ho MD [facility] MRI PROCEDURES Final Result * Screening Mammogram [...] Assessment: 2 - Benign Douglas Ho MD [facility] MAMMO PROCEDURES Tequila l Result * HEPATITIS C AB W/REFL TO HCV RNA, QN, PCR (REFL) (11/25/2024 12:28 PM BINDERY MACHINE TENDER) Hep C Ab Non Reactive Non Reactive [facility] - 01 Blood 11/25/2024 12:2 8 PM BINDERY MACHINE TENDER 11/25/2024 Narrative [facility] - 11/26/2024 5:35 AM BINDERY MACHINE TENDER Performed at: [facility] [address] [id number] Professional Shopper: Karlo Chavarria PhD, Phone: [phone] us Douglas Ho MD LAB BLOOD ORDERABLES Tequila gill Result [facility] - 01 from Last 3 Months or Most Recently Relevant to Health Maintenance [place] [employer] [place] [employer] [place] [employer] [place] [employer] [place] Advance Directives For more information, please contact: [phone] Documents on File Type Date Recorded Patient Data Engineer Expl anation ADVANCE DIRECTIVE 03/26/2021 5:46 AM * Full Code (Latest Code Status on File) Date Activated Date Inactivated Comments 01/02/2025 12:37 AM 01/02/2025 6:43 PM * Full Code Date Activated Date Inactivated Comments 03/26/2021 4:25 PM 03/27/2021 4:37 PM Care Teams Enterprise Sales Person Relationship Specialty Start Date End Date Unknown, Notinfile PCP - General 01/02/25
--- OUTSIDE RECORDS SUMMARY | 2025-05-21 13:06 | XMS_ITS | Encounter Summary ---
Author Organization [facility] Address [address] [place] [address] Care Team Providers Care Carpenters Helper Name Role Phone Ryann Gillis [facility] Primary Care Provider Kalie Castro RAILROAD WHEELS AND AXLE INSPECTOR Unavailable [phone] Donnie Alfaro MD Primary Care Provider [phone] Encounter Details Date Type Department Care Team (Late st Contact Info) Description 12/14/2023 [place] Message Enc [facility] Medical [facility] Family Medicine [address] [address] [facility]ann [facility] diagnostic mammogram Social History Tobacco Use Types [...] CDT [facility]ointment [facility] [place] [address] Caden Maldonado MD [address] [address] documented as of this encounter Visit Diagnoses Not on filedocumented in this encounter Additional Health Concerns Assessment Noted Time PHQ-9 Depression Total Score: 1 09/01/20 23 8:09 AM CDT documented as of this encounter Care Teams Carpenters Helper Relationship Specialty Start Date End Date Ryann Gillis [facility] PCP - General NURSE PRACTITIONER 08/28/20 07/06/24 Donnie Alfaro MD [address] [place] [address]. [place] [phone] PCP - General FAMILY PRACTICE 07/07/24 Kalie Burt, RAILROAD WHEELS AND AXLE INSPECTOR [address] [place] [address] NURSE PRACTITIONER 08/28/20 documented as of this encounter
--- OUTSIDE RECORDS SUMMARY | 2025-05-21 13:07 | XMS_ITS | Encounter Summary ---
Author Organization [facility] Address [address] [place] [address] Care Team Providers Care Electrician Shop Name Role Phone Ryann Gillis [facility] Primary Care Provider Kalie Castro AMBULANCE PARAMEDIC Unavailable [phone] Donnie Alfaro MD Primary Care Provider Encounter Details Date Type Department Care Team (Late st Contact Info) Description 12/01/2023 [place] [facility] Message Enc [facility] Medical [facility] Family Medicine [address] [address] Ryann Gillis FNP- mammogram Social [...] AM CDT [facility]ointment [facility] [address] Caden Maldonado MD [address] [address] documented as of this encounter Visit Diagnoses Not on filedocumented in this encounter Additional Health Concerns Assessment Noted Time PHQ-9 Depression Total Score: 1 09/01/20 23 8:09 AM CDT documented as of this encounter Care Teams Electrician Shop Relationship Specialty Start Date End Date Ryann Gillis [facility] PCP - General NURSE PRACTITIONER 08/28/20 07/06/24 Donnie Alfaro MD [facility] [address] PCP - General FAMILY PRACTICE 07/07/24 Kalie Burt NP [address] [place] [address] NURSE PRACTITIONER 08/28/20 documented as of this encounter
--- OUTSIDE RECORDS SUMMARY | 2025-05-21 13:07 | XMS_ITS | Clinical Summary ---
Author Organization [facility] Address [address] [place] [address] Care Team Providers Care Iv Therapy Nurse Name Role Phone Unavailable Primary Care Provider Unavailabl e Source Comments [facility],non-owned Affiliates and Associated Physician Practices is amultiple site organization consisting of ambulatory clinics and hospital sitesin [place], [place], [place] and [place]. This disclosure is being madepursuant to the Care Everywhere program and may not contain all information available regarding this patient. Last updated 18.[facility] Project [employer] Social History Tobacco Use Types Packs/Day Years [...]
--- OUTSIDE RECORDS SUMMARY | 2025-05-21 13:07 | XMS_ITS | Encounter Summary ---
Author Organization [facility] Address [address] [place] [address] [place] [address] Care Team Providers Care Miller Wood Flour Name Role Phone Unavailable Primary Care Provider Unavailabl e Encounter Details Date Type Department Care Team (Late st Contact Info) Description 09/27/2021 Lab Requisition [facility] [address] [place] [address] Lauren Mccann MD Social History Tobacco Use [...] BETA BLOOD QUANTITATIVE STAT 09/27/2021 12:10 PM CONSULTANT documented in this encounter Results * HCG BETA BLOOD QUANTITATIVE (09/27/2021 12:10 PM CONSULTANT) hCG Quantitative <1.20 mIU/mL 09/27/20 4:10 PM CONSULTANT [facility] Blood BLOOD SPECIMEN / Unknown Venipuncture / Unknown 09/27/2021 12:10 PM CONSULTANT 09/27/2021 3:14 PM CONSULTANT Narrative [facility] - 09/27/2021 4:10 PM CONSULTANT hCG Reference Range, mIU/mL: Males 0-2.0 Non [...] CHEMISTRY ORDERABLES Final Result Performing Organization Address City/State/[facility] Co de Phone Number [facility] [address] [place] [address] documented in this encounter Visit Diagnoses Not on filedocumented in this encounter
--- OUTSIDE RECORDS SUMMARY | 2025-05-21 13:07 | XMS_ITS | Encounter Summary ---
Author Organization [facility] Address [facility] [place] [address] Care Team Providers Care Assembler Motor Vehicle Name Role Phone Ryann Gillis [facility] Primary Care Provider Kalie Castro HELICOPTER ENGINEER Unavailable [phone] Donnie Alfaro MD Primary Care Provider [phone] Reason for Referral * Surgical (Routine) - Closed Specialty Diagnoses / Procedures Referred By Floridalma garcia Referred To Contact NEUROLOGICAL SURGERY Diagnoses Congenital fusion of cervical spine Cervical radiculopathy Ryann Gillis [facility] Morgan Hardin MD [address] [place] [address] Phone: tel: fax: Referral ID Status Reason Start Date Expiration Date V isits Requested Visits Authorized [id number] Closed Specialty Services 11/19/2020 12/20/2021 99 99 [...] consider ultrasound correlation in the near future. NG MACHINE TENDER Encounter Details Date Type Department Care Team (Late st Contact Info) Description 11/18/2020 [place] Message Enc [facility] Medical Group [address] [address] Ryann Gillis FNP-BC RE: Referral [...] COVID-19? No / Unsure 11/17/2020 1:39 PM ROPING MACHINE TENDER documented as of this encounter Plan of Treatment Upcoming Encounters Date Type Department Care Team (Late st Contact Info) Description 02/10/2026 8:00 AM CDT Appointment [facility] [place] [address] Caden Maldonado MD [address] [place] [address] Scheduled Referrals Name Type Priority Associated Diagnoses [...] documented as of this encounter Care Teams Assembler Motor Vehicle Relationship Specialty Start Date End Date Ryann Gillis FNP- PCP - General NURSE PRACTITIONER 08/28/20 07/06/24 Donnie Alfaro MD [address] [place] [address]. [place] [phone] PCP - General FAMILY PRACTICE 07/07/24 Kalie Burt NP [facility] [place] [phone] NURSE PRACTITIONER 08/28/20 documented as of this encounter
--- OUTSIDE RECORDS SUMMARY | 2025-05-21 13:07 | XMS_ITS | Encounter Summary ---
Author Organization [facility] Address [address] [place] [address] Care Team Providers Care Business Process Analyst Name Role Phone Ryann GillisP- Primary Care Provider Kalie Castro CUSTODIAL OPERATIONS MANAGER Unavailable [phone] Donnie Alfaro MD Primary Care Provider [phone] Encounter Details Date Type Department Care Team (Late st Contact Info) Description 01/07/2021 DisplayLinkt Message Enc [facility] Medical [facility] Family Medicine [address] [address] Ryann Gillis FNP-TYLER Medication Questions [...] COVID-19? No / Unsure 01/01/2021 12:38 PM PRINTING MECHANIST documented as of this encounter Plan of Treatment Upcoming Encounters Date Type Department Care Team (Late st Contact Info) Description 02/10/2026 8:00 AM CDT Appointment [facility] [place] [address] Caden Maldonado MD [facility] [address] documented as of this encounter Visit Diagnoses Not on filedocumented in this encounter Additional Health Concerns Infection Onset Date Last Indicated Resolved Time COVID-19 Rule Out 08/25/2021 08/25/2021 08/26/2021 3:20 AM CDT documented as of this encounter Care Teams Business Process Analyst Relationship Specialty Start Date End Date [facility]ann [facility]is [facility] PCP - General NURSE PRACTITIONER 08/28/20 07/06/24 Donnie Alfaro MD [address] [place] [phone] PCP - General FAMILY PRACTICE 07/07/24 Kalie Burt NP [facility] [place] [address] NURSE PRACTITIONER 08/28/20 documented as of this encounter
--- OUTSIDE RECORDS SUMMARY | 2025-05-21 13:07 | XMS_ITS | Data Portability ---
Author Organization [facility] , [facility] Address [address] [place] [address] Assessment No assessment recorded. Plan of Treatment Reminders Order Date Submit Date Provider Last Modified By Organization Details Last Modified Time Details Appointments None recorded. Lab CT + NG DNA, PCR, unspecified specimen 2023 [facility], [address] [place], [address], 4 10:01:57 HPV E6+E7 mRNA, qualitative PCR, cervix 2023 024 [facility], [address] [place], [address], 4 16:13:21 pap, LB 2023 [employer] [facility], [address] [facility], [place], [address], 4 16:12:09 Referral None recorded. Procedures None recorded. Surgeries None recorded. Imaging MAMMO, screening, digital, bilateral 2023 024 [email or web address] Not available 14:53:29 MAMMO, screening, digital, bilateral 2022 023 [email or web address] Not available 3 10:47:25 Medication Orders None recorded. Patient TargetsNo targets recorded. Patient Instructions Encounter Date Encounter Id Patient Instructions Last Modified By Organization Details Last Modified Time 08/28/2023 [id number] body mass index: care instructions awittler Not available 08/28/2023 18:01:25 mammogram: about this test awittler Not available 08/28/2023 18:01:25 Reason for Referral None Reported. Results Created Date Observation Date Name Description Value Unit Range Abnormal Flag Note LastModifiedBy Organization Detail LastModifiedTime 09/02/20 24 09/02/2024 CT/NG CT/NG Order merged to noemi ramirez order number [id number] For future refere nce, please utiliz e test code [address]/GC/ Trich. Not Available [facility] [address] [place], [address], 09/04/2024 10:01:57 09/02/2009/04/2024 CT/NG chlamydia trachomatis CT neg negati ve normal This repor t is inten ded for us in clini heriberto monit oring and manag ement of patie nts. It is not inten ded for use in medic al-le gal appli catio n. Not Available [facility] [address] [place], [address], 09/04/2024 16:13:21 09/02/20 24 09/04/2024 CT/NG neisseria gonorrhoeae GC neg negati ve normal This repor t is inten ded for us in clini heriberto monit oring and manag ement of patie nts. It is not inten ded for use in medic al-le gal appli catio n. Not Available [facility] [address] [address] [place], [address], 09/04/2024 16:13:21 09/02/20 24 09/04/2024 HPV HIGH RISK HPV high risk Negati ve negati ve normal The HPV High Risk assay is inten ded for use as co-te sting with cytol ogy and not as a subst itute for regul ar cervi heriberto cytol ogy scree leodan. This assay is not inten ded for use as a scree leodan devic e for women under age 30 with antonio l cervi heriberto cytol ogy. Not Available [facility] [address] [address] [place], [address], 09/04/2024 16:13:22 09/02/2009/11/2024 THINP REP TIS PAP clinical information: normal Routi ne exam Not Available [address], [address], 09/11/2024 16:12:09 09/02/2009/11/2024 THINP REP TIS PAP LMP: normal NONE GIVEN Not Available [address], [address], 09/11/2024 16:12:09 09/02/2009/11/2024 THINP REP TIS PAP prev. Pap: normal NONE GIVEN Not Available [address], [address], 09/11/2024 16:12:09 09/02/20 24 09/11/2024 THINP REP TIS PAP prev. BX: normal NONE GIVEN Not Available [address], [address], 09/11/2024 16:12:09 09/02/2009/11/2024 THINP REP TIS PAP source: normal Cervi x Not Available [address], [address], 09/11/2024 16:12:09 09/02/2009/11/2024 THINP REP TIS PAP statement of adequacy: normal Satis facto ry for evalu ation . Endoc ervic al/tr ansfo rmati on zone compo nent prese nt. Age and/o r menst rual statu s not provi ded Not Available [address], [address], 09/11/2024 16:12:09 09/02/20 24 09/11/2024 THINP REP TIS PAP interpretati on/result: normal Cytol ogy Resul ts: Negat netta for intra epith elial lesio n or malig radha . Not Available [address] [address] [place], [address], 09/11/2024 16:12:09 09/02/2009/11/2024 THINP REP TIS PAP comment: normal This case could not be evalu ated with compu orellana techn ology . The slide was art mukherjee scredarnell betzy accor ding to phan solorio . Not Available [address] [place], [address], 09/11/2024 16:12:09 09/02/2009/11/2024 THINP REP TIS PAP cytotechnolo gist: normal JAF, CT( CP) CT Scree leodan Locat ion: [address] [address] [place] [address] Not Available [address] [address] [place], [address], 09/11/2024 16:12:09 09/02/20 24 09/11/2024 THINP REP TIS PAP review cytotechnolo gist: normal WHITAKER, CT( CP) CT Scree leodan locat ion: [address] [place] [address] Not Available [address], [address], 09/11/2024 16:12:09 09/02/2009/11/2024 THINP REP TIS PAP comment EXPLA NATOR Y NOTE: The Pap is a scree leodan test for cervi heriberto cance r. It is not a diagn ostic test and is subje ct to false negat netta and false posit netta resul ts. It is most relia ble when a satis facto ry sampl e, regul helena obtai betzy, is submi tted with relev ant clini heriberto findi ngs and histo ry, and when the Pap resul t is evalu ated along with histo elizabeth and curre nt clini heriberto infor matio n. Not Available [address] [address] [place], [address], 09/11/2024 16:12:09 Result Notes None recorded. Problems Name Problem SNOMED Code Status Onset Date Resolution Date Notes Provider Name and Address Organization Details Recorded Time Uses contrace ption 80392622 Completed 201602/06/2017 Follow-u p visit for other contrace ption method; Location : None Severity : Moderate Progress : Stable Added By: Perla Campbell Add to Current Problems : YES ProblemS tatus: Resolve Not Available [facility] 1 19:16:[address] Concept Completed 201602/06/2017 Encounte r for surveill ance of other contrace ptives; Progress : Stable Added By: Perla Campbell Add to Current Problems : NO ProblemS tatus: Resolve Not Available [facility] 2 20:17:04 Family history of malignan t neoplasm of ovary 972092596 Active 2017 Family history of malignan t neoplasm of ovary; Progress : Stable Added By: Vianney Barksdale Add to Current Problems : YES ProblemS tatus: Current [facility] Available [facility] 2 20:16:54 Intramur al leiomyom a of uterus 38326130 Active 2019 Intramur al leiomyom a of uterus; Progress : Stable Added By: Kalie Burt Add to Current Problems : YES ProblemS tatus: Current Not Available [facility] 2 20:17:02 Family history of Ovarian carcinom a Active 2017 Family history of ovarian cancer; Location : None Severity : Moderate Progress : Stable Added By: Kalie Burt Add to Current Problems : YES ProblemS tatus: Current Not Available [facility] 1 19:16:38 Sampling of vagina for Papanico laou smear Active 2019 Encounte r for gynecolo gical examinat ion (general ) (routine ) without abnormal findings ; Progress : Stable Added By: Daysi Chung Add to Current Problems : YES ProblemS tatus: Current Not Available [facility] 2 20:16:59 Family planning educatio n done [id number] Completed 201702/23/2018 Family planning advice; Location : None Severity : Moderate Progress : Stable Added By: Kalie Burt Add to Current Problems : YES ProblemS tatus: Resolve Not Available [facility] 1 19:16:43 Breast neoplasm screenin g NOS Completed 201702/23/2018 Screenin g mammogra m - other; Location : None Severity : Moderate Progress : Stable Added By: Allegra Johansen Add to Current Problems : YES ProblemS tatus: Resolve Not Available [facility] 1 19:16:43 Alopecia 00693516 Active 2017 Loss of hair; Location : None Progress : Stable Added By: Kalie Burt Add to Current Problems : YES ProblemS tatus: Current Nonscarr ing hair loss, unspecif ied; Progress : Stable Added By: Kalie Burt Add to Current Problems : YES ProblemS tatus: Current Not Available [facility] 2 20:16:59 Breast lump 41677653 Active 2016 Breast mass; Location : None Progress : Stable Added By: Pennie Rousseau Add to Current Problems : YES ProblemS tatus: Current Unspecif ied lump in breast; Progress : Stable Added By: Kalie Burt Add to Current Problems : YES ProblemS tatus: Current Not Available [facility] 2 20:17:04 Natural contrace ption educatio n Completed 201702/23/2018 Family planning advice; Location : None Progress : Stable Added By: Kalie Burt Add to Current Problems : YES ProblemS tatus: Resolve Procreat netta counseli ng and advice using natural family planning ; Progress : Stable Added By: Kalie Burt Add to Current Problems : NO ProblemS tatus: Resolve Not Available [facility] 2 20:16:52 Reproduc tive care manageme nt Active 2019 Encounte r for other general counseli ng and advice on procreat ion; Progress : Stable Added By: Kalie Burt Add to Current Problems : YES ProblemS tatus: Current Not Available [facility] 2 20:16:56 Screenin g mammogra phy Active 2020 Encounte r for screenin g mammogra m for malignan t neoplasm of breast; Progress : Stable Added By: Daysi Chung Add to Current Problems : YES ProblemS tatus: Current Screenin g mammogra m - other; Location : None Progress : Stable Added By: Allegra Johansen Add to Current Problems : YES ProblemS tatus: Resolve; Start Date : 12/25/19 18 Rose alcocer mammogra m - other; Location : None Progress : Stable Added By: Madison Chapman Add to Current Problems : YES ProblemS tatus: Resolve; Start Date : 12/06/19 17 Not Available [facility] 2 20:16:59 Screenin g for malignan t neoplasm of cervix Active 2020 Encounte r for screenin g for malignan t neoplasm of cervix; Progress : Stable Added By: Daysi Chung Add to Current Problems : YES ProblemS tatus: Current Not Available [facility] 2 20:17:01 Notes:Family history of ovar charles cancer (V16.41) ; OnsetDate: 12/25/2017; Progress: Stable Added By: Kalie Burt Add to Current Problems: YES ProblemStatus: Current Follow-up visit for other contraception method (V25.49) ; OnsetDate: 12/08/2016; ResolvedDate: 02/06/2017; Progress: Stable Added By: Perla Campbell Add to Current Problems: NO ProblemStatus: Resolve Problem Notes None recorded. Procedures Surgical History Date Name Laterality Status Provider Name and Address Organization Details Recorded Time 12/13/19 24 Most Recent Mammogram completed KATIA Krishnamurthy [address] [place], [address], [facility] 08/31/2024 18:09:05 09/10/20 23 Date of Last Colonoscopy completed KATIA Krishnamurthy [facility] [place], [address], [facility] 08/31/2024 18:04:45 08/30/20 21 Date of Last Pap Smear completed Penny Sosa [facility] 11/20/2021 20:11:50 03/06/20 21 Most Recent Bone Density completed Agnieszka Hahn [facility] 09/02/2024 15:42:02 tonsillectomy completed [facility] 11/20/2021 20:13:34 [facility] 20:13:55 procedure on back completed [facility] 11/20/2021 20:14:35 Imaging Results None recorded. Procedure Notes None recorded. Medical Equipment None Reported. Allergies Allergen ID Allergen Name Allergen Category Reaction Reaction Severity Criticality Documentation Date Start Date Code Code System Note Provider Name and Address Organization Details Recorded Time 473702 talc medicatio n Not available Not available Not available 08/27/20212016 85853 RxNorm Sever ity: Moder ate; Comme nt: Aller gy Delet ed On: 12/06; Not Available [facility] 2 09:19:16 032277 Substance with sulfonami de structure and antibacte rial mechanism of action (substanc e) medicatio n Not available Not available Not available 11/22/2021 32141 8003 SNOMED Allison Lugotre wallace, [place] [facility] 2 15:51:05 Medications Name Sig Start Date Stop Date Status Note LastModified by Organization Details LastModified Time fed-ex standard overnight MON-TUE OV TO PT HM SIG REQ 02/13 DECLINED COUNSELI NG; A.P 08/28 completed Not Available Not Available Not Available sharp container USE TO DISPOSE OF NEEDLES 08/28 completed Not Available Not Available Not Available medroxypr ogesteron e 10 mg tablet TAKE 2 TABLETS ORALLY ONCE A DAY DIRECTED 08/28 completed Not Available Not Available Not Available doxycycli ne hyclate 100 mg capsule TAKE 1 CAPSULE BY MOUTH TWICE DAILY WITH FOOD 08/28 completed Not Available Not Available Not Available clindamyc in HCl 300 mg capsule TAKE 1 CAPSULE BY MOUTH EVERY 12 HOURS WITH MEALS 08/28 completed Not Available Not Available Not Available BD Insulin Syringe 1 mL 25 x 1 USE 1 SYRINGE TO INJECT INTO THE MUSCLE ONCE WEEKLY 08/28 completed Not Available Not Available Not Available azithromy boubacar 250 mg tablet TK 2 TS PO ON DAY 1, THEN TK 1 T PO D FOR 4 DAYS DIRECTED 09/02 completed Not Available Not Available Not Available Pregnyl 10,000 unit intramusc ular solution 09/02 completed Not Available Not Available Not Available topiramat e 25 mg tablet 09/02 completed Not Available Not Available Not Available levothyro xine 25 mcg tablet TAKE 1 TABLET BY MOUTH EVERY DAY DIRECTED . REPEAT LAB IN 4-6 WEEKS 08/28 completed Not Available Not Available Not Available levothyro xine 75 mcg tablet TAKE 1 TABLET BY MOUTH DAILY DIRECTED . REPEAT LAB IN 4-6 WEEKS active Not Available Not Available No t Available Vitamin tablet Take 1 tab PO daily 02/10 completed Multivit garcia Tablet Allow Substitu tion: True Refill Denied: No Not Available Not Available Not Available progester one 50 mg/mL intramusc ular oil active Not Available Not Available Not Available Sure Comfort Insulin Syringe 1/2 mL 28 gauge x 1/2 USE DIRECTED [OMNITRO PE MEDICATI ON] 08/28 completed Not Available Not Available Not Available levothyro xine 50 mcg tablet TAKE 1 TABLET BY MOUTH EVERY DAY DIRECTED . REPEAT LAB IN 4-6 WEEKS 08/28 completed Not Available Not Available Not Available cabergoli ne 0.5 mg tablet 2023 active Not Available Not Available Not Avai lable indometha boubacar 50 mg capsule TAKE 1 CAPSULE BY MOUTH THREE TIMES DAILY 08/28 completed Not Available Not Available Not Available estradiol 2 mg tablet TAKE 1 TABLET BY MOUTH THREE TIMES DAILY active Not Available Not Available No t Available mupirocin 2 % topical ointment 11/22 completed Not Available Not Available Not Available testoster one cypionate 200 mg/mL intramusc ular oil INJECT 0.1ML IN THE MUSCLE ONCE 08/28 completed Not Available Not Available Not Available letrozole 2.5 mg tablet active Not Available Not Available Not Available scopolami ne 1 mg over 3 days transderm al patch APPLY DIRECTED MORNING OF PROCEDUR E 08/28 completed Not Available Not Available Not Available BD Luer-Isaac Syringe 3 mL 22 x 1 1/2 USE DIRECTED [OMNITRO PE MEDICATI ON]; DRAW 08/28 completed Not Available Not Available Not Available leuprolid e 1 mg/0.2 mL subcutane ous kit 09/02 completed Not Available Not Available Not Available phentermi ne 37.5 mg capsule 09/02 completed Not Available Not Available Not Available progester one micronize d 100 mg capsule TAKE 1 CAPSULE BY MOUTH THREE TIMES DAILY active Not Available Not Available No t Available oxycodone 5 mg tablet 11/22 completed Not Available Not Available Not Available cyclobenz aprine 5 mg tablet 11/22 completed Not Available Not Available Not Available ganirelix 250 mcg/0.5 mL subcutane ous syringe 09/02 completed Not Available Not Available Not Available Follistim AQ 600 unit/0.72 mL subcutane ous cartridge 08/28 completed Not Available Not Available Not Available Menopur 75 unit subcutane ous solution 09/02 completed Not Available Not Available Not Available Follistim AQ 900 unit/1.08 mL subcutane ous cartridge INJECT 600 IU UNDER THE SKIN DAILY 09/02 completed Not Available Not Available Not Available Omnitrope 5.8 mg subcutane ous solution INJECT 1.14 ML diluent INTO POWDER. INJECT 0.25 ML (25 UNITS) SUBCUTAN EOUSLY ONCE DAILY DIRECTED KEEP REFRIGER ATED 08/28 completed Not Available Not Available Not Available Endometri n 100 mg vaginal insert 09/02 completed Not Available Not Available Not Available Estarylla 0.25 mg-0.035 mg tablet TAKE 1 TABLET BY MOUTH EVERY DAY DIRECTED . TAKE ACTIVE PILLS ONLY active Not Available Not Available No t Available Xulane 150 mcg-35 mcg/24 hr transderm al patch Apply 1 patch(es ) to buttock, abdomen, upper outer ar q week for 3 weeks of each month. 05/05 completed Xulane 150mcg/3 5mcg per 24hr Transder mal Patch RxNorm: [id number] Allow Substitu tion: True Refill Denied: No Not Available Not Available Not Available Follistim Pen Device subcutane ous pen injector USE TO INJECT FOLLISTI M 08/28 completed Not Available Not Available Not Available Vitals Date Recorded Body height Body mass index (BMI) Body weight Body temperature Systolic And Diastolic Provider Name and Address Organization Details Last Updated DateTime 11/22/2021 162.56 cm 27.4 kg/m2 21135.6 2 g 97.5 [degF] 110/68 mm[Hg] Allison Lugolister [facility] 2 15:50:47 Date Recorded Body weight Body mass index (BMI) Body height Systolic And Diastolic Provider Name and Address Organization Details Last Updated DateTime 08/28/2023 55019.77 g 32.1 kg/m2 162.56 cm 108/64 mm[Hg] Brianna En [facility] 08/28/2023 10:38:37 Date Recorded Body height Body mass index (BMI) Body weight Body temperature Systolic And Diastolic Provider Name and Address Organization Details Last Updated DateTime 09/02/2024 162.56 cm 31.2 kg/m2 19425.0 9 g 97.3 [degF] 110/64 mm[Hg] Agnieszka Hahn [facility] 15:41:07 Social History Question Answer Notes LastModified by Organizat ion Details LastModified Time Tobacco Smoking Status Never Smoker Allison Jojo [facility] 11/22/2021 15:52:55 Are You Blind Or Do You Have Difficulty Seeing? No Information not available 08/28/2023 Are You Deaf Or Do You Have Serious Difficulty Hearing? No Information not available 08/28/2023 What Type Of Diet Are You Following? REGULAR Information not available 08/28/2023 How Many Children Do You Have? 0 Information not available 08/28/2023 What Is Your Relationship Status? Single Information not available 11/20/2021 Are You Sexually Active? Yes Information not available 11/20/2021 Sex: Unknown Functional Status Question Answer Note LastModified by Organizat ion Details LastModified Time Do you use any illicit or recreational drugs? No Information not available 11/22/2021 Do you or have you ever used any other forms of tobacco or nicotine? No Information not available 11/22/2021 What is your level of alcohol consumption? Occasional Information not available 11/22/2021 What is your exercise level? Occasional Information not available 11/22/2021 Mental Status None recorded. Family History Relationship Description Onset Age of this Age Resolved Age Notes LastModified by Organization Details LastModified Time Father Hypertensive disorder [email or web address] Not available 11/06 20:13:03 Paternal Grandfather Hypertensive disorder [email or web address] Not available 11/06 20:13:03 Maternal Grandmother Type 2 diabetes mellitus [email or web address] Not available 09/02 15:33:28 Unspecified Relation Malignant neoplasm of ovary Great Aunt awittler Not available 09/02/2024 15:58:52 Unspecified Relation Family history of breast cancer Great Aunt awittler Not available 09/02/2024 15:59:07 Medical History Condition Response Hypothyroidism Y Gynecological History Statement/Question Response Date of Last Colonoscopy 09/10/2023 Flow Moderate Frequency of Cycle (Q days) 29 Date of LMP 08/19/2024 Most Recent Bone Density 03/06/2021 Date of Last Pap Smear 08/30/2021 Duration of Flow (days) 3-4 Most Recent Mammogram 12/13/2023 Current Control Method BCPs Age at Menarche 15 Obstetrics History GPAL:G 0 P 0 0 0 0 Type Value Multiple Births 0 Full Term 0 Induced 0 Spontaneous 0 Premature 0 Living 0 Ectopics 0 Total 0 Past Encounters Encounter ID Performer Location Encounter Start Date Encounter Closed Date Diagnosis/Indication Diagnosis SNOMED-CT Code Diagnosis ICD10 Code Diagnosis Note [id number] KATIA Krishnamurthy [facility] [address] [place] [address] 11/22/2021 15:41:19 12/07/2021 12:17:03 Folliculitis 30289838 L73.9 Pt educated on exam findings. Discussed recommenda tion to keep area open to air, use of baking soda soaks/warm compresses , and can use OTC triple antibiotic cream to facilitate healing. Pt advised to avoid invasive hair maintenanc e in the future, use of unscented soaps, and avoidance of wearing tight clothing all the time. If no resolution of sx or worsening of sx occurs, will consider Clindamyci n p.o. Pt states understand ing of POC. [id number] KATIA Krishnamurthy [facility] [address] [place] [address] 08/28/2023 10:17:52 08/28/2023 16:19:32 Gynecologic examination 79150792 Z01.419 Pt educated on ACOG and ASCCP guidelines for breast, ovarian, and cervical cancer screenings . Pap Hx: 12/2016 NILM, HPV neg, 08/2021 NILM, HPV neg. No pap collected today. Pt states understand ing and is amenable to POC. Screening for malignant neoplasm of breast 616327852 Z12.31 Pt educated on breast cancer screening guidelines , and discussed recommenda tion for scheduling imaging at hospital of her choice. Reviewed recommenda tion to have imaging done at same facility if possible as previous screenings . Pt states understand ing of POC. Screening for malignant neoplasm of colon 077733922 Z12.11 Pt educated on colon cancer screening guidelines . Pt states she would prefer to consider Cologard. Pt case sent to order testing. Pt advised to follow collection directions and submit sample. Further POC pending lab result review. Family his tory of breast cancer 301307754 Z80.3 Pt educated on optional MyRisk testing and encouraged scheduling of mammogram. Pt states understand ing of POC. MyRisk testing completed in office today. Further POC pending lab and imaging result review. > 20 minutes spent with patient care and at least 50% of that time was in face to face counseling . Family his tory of malignant neoplasm of ovary 163547168 Z80.41 Pt educated on optional MyRisk testing, annual CA 125, and annual TVUS. 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 Pt completed MyRisk testing in office today. Further POC pending lab result review. [id number] KATIA Krishnamurthy [facility] [address] [place] [address] 09/02/2024 15:33:19 09/03/2024 12:55:56 Gynecologic examination 47126167 Z01.419 Pt educated on ACOG and ASCCP guidelines for breast, ovarian, and cervical cancer screenings . Exam WNL. Plan for F/U PRN or for next WWE. Screening for malignant neoplasm of breast 901434614 Z12.31 Pt educated on breast cancer screening guidelines , and discussed recommenda tion for scheduling imaging at hospital of her choice. Reviewed recommenda tion to have imaging done at same facility if possible as previous screenings . Pt states understand ing of POC. Family his tory of breast cancer 402033174 Z80.3 Pt educated on optional MyRisk testing. Pt attempted MyRisk testing last year, and was too expensive out of pocket. Pt chose to d/c proceeding with testing. Documentat ion under canceled request in chart on 09/22/2023 . Pt states understand ing of POC and will consider. Pt to notify HCP if would like to proceed with hereditary testing in the future. Family his tory of malignant neoplasm of ovary 954661340 Z80.41 Pt educated on optional MyRisk testing, annual CA 125, and annual TVUS. Pt educated on optional MyRisk testing. Pt attempted MyRisk testing last year, and was too expensive out of pocket. Pt chose to d/c proceeding with testing. Documentat ion under cancelled request in chart on 09/22/2023 . Pt states understand ing of POC and will consider. Pt to notify HCP if would like to proceed with hereditary testing in the future. 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 Depression screening [id number] Z13.31 PHQ9: 1. Pt educated on normal scoring, and discussed depression precaution s and when to notify HCP/go to ER. Heterogene ously dense breast composition [id number] R92.333 Discussed mammogram results showing normal looking imaging with the presence of dense tissue. The radiologis t recommends routine screening in one year. Reviewed the Mammogram Quality Standards Act changed in 2023, and now requires this disclosure to all patients when they get a mammogram that shows density. Providers are responsibl e for disclosing the presence of dense breast tissue, which can cloud the radiologis t's view from completely seeing and assessing all areas of the breast. Should the patient desire to pursue additional pictures to see through that density more clearly, we are able to PA and order additional imaging of a Breast MRI. Pt prefers to consider PA to determine what her insurance will cover before proceeding with order. PA sent. Screening for malignant neoplasm of cervix [id number] Z12.4 ASCCP guidelines reviewed with pt. Pt requested repeating pap today for her upcoming AZEB tx. Pap collected and sent. Further POC pending lab result review. Pt states understand ing of POC. Health Concerns Section Related Observation LastModified by Organization Detai ls LastModified Time None Recorded Concern Status LastModified by Organization Details LastModified Time None Recorded Advance Directives Directive None Recorded Payers Insurance Date Sequence Insurance Name Policy Number Policy Banuelos Covered Member ID Banueols Member ID Guarantor Name 09/13/2024 1 [id number] [id number] Maria Ines Wall [id number] Maria Ines Angel Duke Notes Date Note Type Note Provider Name and Address Organization Details Recorded Time 11/22/2021 text/html Pt notes sores t hat fill with pus in perianal area. Pt no longer shaves, but does use luciano to maintain pubic hair. Pt states area now resolving, but wanted to discuss how to prevent and see if any tx needed. KATIA Krishnamurthy [address] [place], [address], [facility] [employer] 11/22/2021 16:29:30 08/28/2023 text/html Patient is here for annual, she has no concerns. Pt states she is doing well. Pt reports having regular monthly cycles that are not heavy or painful. LMP 08/06/2023, every 28 day cycle. Last 3-4 days, empties cup every 3-4 hours first day and then every 12 hours. Pt is currently using for Estra 28, filled by fertility specialist. 4 egg retrievals a year with IVF and then on contraception in between retrievals. Next retrieval in November. Pt denies any difficulty remembering dosing schedule. Pt has never had a colon cancer screening. The last mammogram was 2 or more years ago, unknown when last one was. Has had breast ultrasounds that identified several fibrous cysts. Has family history of breast and ovarian cancer in grandfather's sister, unknown when first diagnosed. Pt. has not had myrisk testing. Pt declines STD screening via culture and serum testing. Pt has no other concerns. KATIA Krishnamurthy [address] [place], [address], [place] [employer] 08/28/2023 18:03:08 09/02/2024 text/html Pt presents for annual well woman exam today. Pt states she is doing well. Pt reports having regular monthly cycles that are not heavy or painful. Pt characterizes bleeding as occurring every 29 days, lasting 3-4 days, and changes her pad/tampon/menstrua l cup up to 4-5 times per day. LMP: 08-19-24. Pt is currently sexually active. Pt does desire within the next year. Pt is currently using the Estarylla pill for contraception and will stop on 09/09/24 to start the cycle and prepare for embryo transfer. Last Pap: 08/2021 NILM, HPV neg. Pt is UTD on mammogram, last done 12/2023 Birads 2, Density Category C, Benign, simple cyst of R breast noted. Pt is UTD on cologard, WNL in 09/2023. Pt has no personal of cancer. Family history of breast and ovarian in great aunt and grandfather with skin cancer. Pt declines STD screening via culture and serum testing. Pt does have PCP who she sees routinely for health promotion and screenings. Pt has no other concerns. KATIA Krishnamurthy [address] [facility], [place], [address], [employer] 09/03/2024 09:12:25 OBGyn Episode No OBEpisode recorded.
--- OUTSIDE RECORDS SUMMARY | 2025-05-21 13:07 | XMS_ITS | Encounter Summary ---
Author Organization [facility] Address [address] [place] [address] Care Team Providers Care 1St Pressman Name Role Phone NathaliaRyann rizo [facility] Primary Care Provider Kalie Castro ELECTRICAL MAINTENANCE TECHNICIAN Unavailable [phone] Donnie Alfaro MD Primary Care Provider [phone] Encounter Details Date Type Department Care Team (Late st Contact Info) Description 10/05/20[address] StatSocial [address] [address] [place], [facility] Provider Screening Social History Tobacco Use Types [...] AM CDT Appointment [facility] [place] [address] Caden Maldonado MD [address] [address] documented as of this encounter Visit Diagnoses Not on filedocumented in this encounter Additional Health Concerns Assessment Noted Time PHQ-9 Depression Total Score: 1 09/01/20 23 8:09 AM CDT documented as of this encounter Care Teams 1St Pressman Relationship Specialty Start Date End Date Ryann Gillis [facility] PCP - General NURSE PRACTITIONER 08/28/20 07/06/24 Donnie Alfaro MD [facility] [place] [address] PCP - General FAMILY PRACTICE 07/07/24 Kalie Burt NP [facility] [place] [id number] NURSE PRACTITIONER 08/28/20 documented as of this encounter
--- OUTSIDE RECORDS SUMMARY | 2025-05-21 13:07 | XMS_ITS | Encounter Summary ---
Author Organization [facility] Address [address] [place] [address] Care Team Providers Care Hair Or Beauty Salon Manager Name Role Phone Ryann Gillis [facility] Primary Care Provider Kalie Castro CONCRETE PAVING MACHINE OPERATOR Unavailable [phone] Donnie Alfaro MD Primary Care Provider [phone] Encounter Details Date Type Department Care Team (Late st Contact Info) Description 09/07/2023 [employer] Message Enc [facility] Medical [address] [address] Ryann Gillis FNP-TYLER Calcium Social History Tobacco Use Types Packs/Day [...] AM CDT [facility]ointment [facility] [place] [address] Caden Maldonado MD [address] [address] documented as of this encounter Visit Diagnoses Not on filedocumented in this encounter Additional Health Concerns Assessment Noted Time PHQ-9 Depression Total Score: 1 09/01/20 23 8:09 AM CDT documented as of this encounter Care Teams Hair Or Beauty Salon Manager Relationship Specialty Start Date End Date [facility]CP - General NURSE PRACTITIONER 08/28/20 07/06/24 Donnie Alfaro MD [facility] [place] [id number] PCP - General FAMILY PRACTICE 07/07/24 Kalie Burt NP [address] [place] [id number] NURSE PRACTITIONER 08/28/20 documented as of this encounter
--- NOTE | 2025-05-21 13:24 | ED_ITS ---
HPI - Extremity Injury (Lower) General Chief Complaint: Extremity Injury, Lower Stated Complaint: right ankle injury Time Seen by Provider: 05/21/25 12:30 Source: patient Mode of arrival: ambulatory Limitations: no limitations History of Present Illness HPI Narrative: Patient is a 50-year-old female who presents the ED with report of right ankle pain. Patient reports she rolled her right ankle yesterday and has had pain/swelling since then. Reports a pulling sensation in her right heel/posterior ankle when she ambulates. Is able to ambulate, but has pain with this. Has been taking Tylenol/ibuprofen for pain. Last took ibuprofen this morning. Denies numbness, any other injuries. Related Data Allergies Allergy/AdvReac Type Severity Reaction Status Date / Time Sulfa (Sulfonamide Allergy Mild Nausea Verified 05/21/25 12:25 Antibiotics) Review of Systems Review of Systems: All systems reviewed & are unremarkable except as noted in HPI. All systems reviewed & are unremarkable except as noted in HPI and below Exam Narrative: GENERAL: Well appearing, well-nourished, non-toxic, in no acute distress. HEAD: Normocephalic, atraumatic. RESPIRATORY: Airway patent, respirations nonlabored. CARDIOVASCULAR: Regular rate and rhythm. Pedal pulses intact and easily palpable. MUSCULOSKELETAL: Moves all extremities. Mild swelling throughout lateral malleoli and across anterior lateral ankle mortise with diffuse tenderness. Some slight bruising developing. No significant tenderness over Achilles tendon. Negative Richmond test, appropriate plantar flexion of ankle with squeezing of calf. Sensation intact throughout ankle/foot. No tenderness over 5th metatarsal. No tenderness over medial malleoli. SKIN: Warm, dry, normal color. NEURO: A&O X3. Speech clear. Cranial nerves II-XII grossly intact. Steady gait. No ataxic movements. PSYCHIATRIC: Appropriate mood and affect. Normal interaction. Course Vital Signs Vital signs: Vital Signs Temperature 97.7 F 05/21/25 12:26 Pulse Rate 75 05/21/25 12:26 Respiratory Rate 16 05/21/25 12:26 Blood Pressure 108/67 05/21/25 12:26 Pulse Oximetry 99 05/21/25 12:26 Temperature 97.7 F 05/21/25 12:26 Pulse Rate 75 05/21/25 12:26 Respiratory Rate 16 05/21/25 12:26 Blood Pressure 108/67 05/21/25 12:26 Pulse Oximetry 99 05/21/25 12:26 MDM - Extremity Injury (Lower) MDM Narrative Medical decision making narrative: Patient?s injury is consistent with musculoskeletal etiology. No signs of neurol ogic or vascular compromise on physical examination. Compartments are soft without signs of compartment syndrome. XR of right ankle negative for fracture. Pain is consistent with ankle sprain. Patient is felt to be stable for discharge home and further outpatient management and treatment. Given Lawrence bandage. Offered crutches, however patient declined. Discussed rice therapy, strict return precautions. Patient in agreement with plan. Will refer to orthopedics for further evaluation if needed. Discharged in stable condition. Medical Records Attestation: I reviewed the patient's medical records. Imaging Data Attestation: I personally reviewed and interpreted this imaging study as follows: Radiologist's impression: ITS Impressions Ankle X-Ray 05/21/25 12:41 IMPRESSION: 1: NO ACUTE BONE OR JOINT ABNORMALITY IDENTIFIED. Discharge Plan Discharge Clinical Impression: Sprain of right ankle Qualifiers: Encounter type: initial encounter Involved ligament of ankle: unspecified ligament Qualified Code(s): S93.401A - Sprain of unspecified ligament of right ankle, initial encounter Patient Disposition: Home Condition: Stable Instructions: Antibiotic Form, Ankle Sprain (ED), P.R.I.C.E. Treatment (ED) Additional Instructions: Recommend Lawrence bandage for compression and support, elevation of leg whenever possible. Recommend frequent icing to ankle. Recommend Tylenol and ibuprofen around the clock as needed for pain. Follow-up with primary care doctor and/or orthopedics for further evaluation if needed. Return to the ED for new or worsening concerns, recurrent fall or injury, severe pain or swelling, numbness, or any other symptoms of concern. Patient Language: Indonesian Follow-up/Referrals: PHYSICIAN,BRINE MAKER [Primary Care Provider] - Adolfo Dudley MD [Physician] - (ORTHOPEDICS) Time of Disposition: 13:25
[2025-05-21] MEDS: ACETAMINOPHEN 500 MG TABLET 1000 MG PO (13:35)
== END 2025-05-21 13:31 | disposition home or self-care (01) ==
PROVIDERS: Emergency Provider Physician Assistant
DX: S93.401A Sprain of unspecified ligament of right ankle, initial encounter (principal); X50.0XXA Overexertion from strenuous movement or load, initial encounter
CPT/HCPCS: 73610; 99283; A9270